=== PATIENT | female | born 1990 | race Caucasian/White ===

== ENCOUNTER 2016-07-28 21:19 | Emergency (ER) | payer BC ==
[2016-07-28 21:36] VITALS: BP 156/93
[2016-07-28] MEDS ORDERED: Cephalexin CAP* 500 MG PO ONE (22:43)
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
[2016-07-29 12:10] LABS: Hematocrit 41 % (35-47); Hemoglobin 13.2 g/dl (12.0-16.0); Mean Corpuscular HGB Conc 32 g/dl (31-36); Mean Corpuscular Hemoglobin 27 pg (27-31); Mean Corpuscular Volume 84 fL (80-97); Mean Platelet Volume 9 um3 (7.4-10.4); Red Blood Count 4.83 10^6/ul (4.0-5.4); Red Cell Distribution Width 14 % (10.5-15)
[2016-07-29 13:08] LABS: Erythrocyte Sed Rate 48 mm/Hr (0-14)
[2016-08-01 16:54] LABS: Lyme Disease IgG Ab WB Negative (Negative)
== END 2016-07-28 23:27 | disposition home or self-care (01) ==
LOC: UCEAST 21:19
DX: L03.113 Cellulitis of right upper limb (principal); Z88.0 Allergy status to penicillin; Z90.49 Acquired absence of other specified parts of digestive tract; Z87.891 Personal history of nicotine dependence
CPT/HCPCS: 36415; 85025; 85652; 86141; 86617; 99212; A9270-GY; G0463

== ENCOUNTER 2017-08-23 20:52 | Emergency (ER) | payer BC ==
--- OUTSIDE RECORDS SUMMARY | 2017-08-23 21:00 | XMS REPORT ---
:1990 External Reference #:[id number] Author Organization [facility] Address [address] [place] [address] Phone [phone] Care Team Providers Name Role Phone HCP given Primary Care Physician Unavailable Payers Type Date Identification Numbers Payment Provider Subscriber Commercial Effective: Policy Number: Dara Hanna 2015 [id number] Ind/Ppo/Hmo/Pos Group Number: PPO [employer] LOCAL ON [address] [address] PayID: [id number] [place] [address] Problems Date Description Provider Status Onset: 11/10/2010 Irritable bowel syndrome Deniz Mendez Active Onset: 11/17/2010 Generalized anxiety disorder Deniz Mendez Active Onset: 11/17/2010 Morbid obesity Deniz Mendez Active Onset: 05/19/2015 Neck pain Sony Bolton D.O. Active Onset: 05/19/2015 Myalgia Sony Bolton D.O. Active Onset: 06/20/2015 Cough Sony Bolton D.O. Active Onset: 06/20/2015 Oropharyngeal dysphagia Sony Bolton D.O. Active Onset: 06/20/2015 Chronic rhinitis Sony Bolton D.O. Active Onset: 06/20/2015 Gastroesophageal reflux disease Sony Bolton D.O. Active Onset: 06/20/2015 Anxiety state Sony Bolton D.O. Active Onset: 04/12/2016 Jaw pain Sony Bolton D.O. Active Onset: 04/12/2016 Plantar fascial fibromatosis Sony Bolton, D.O. 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[employer], promoted agency cashier Cigarette Use Former Cigarette Smoker 2 x 8 yrs, quit in 2008 Packs Daily Smoking Non Smoker Currently Active Patient is currently sexually active Contraceptive Methods BCP # Partners in a Lifetime 2 Allergies, Adverse Reactions, Alerts Date Description Reaction Status Severity Comments 10/18/2011 Amoxicillin active rash, difficulty breathing 10/28/2014 Penicillins active rash, difficulty breathing 03/01/2016 Famotidine active caused abd pain and nausea went back to omeprazole 08/29/2009 No Known Drug Allergy inactive Medications Medication Date Status Form Strength Qnty SIG Indications Ordering Provider Doxycycline 07/31 Hx Capsules 100mg 56cap 1 twice a R53.83 Sopstephanie Hyclate s day for 28 Sony, - days D.O. 08/28 Azelastine HCL 10/11 Active Solution 0.15% 30ml instill one J31.0 Sopstephanie, (Nasal) spray at Sony, night and D.O. every 12 hours as needed for nasal drainage Fluticasone 10/11 Active Suspension 50mcg/Act 16uni 2 sprays [facility]31.0 [facility] each Sony, nostril D.O. every day for nasal congestion. flaquito allergies. rinse mouth post Ra Omeprazole 12/[address] 20mg 180ta 2 by mouth K21.9 gina bs every day Sony, D.O. Tramadol HCL 11/30 Active Tablets 50mg 30tab 1-2 by R68.84 Sopchak, s mouth every Sony, 6 hours as D.O. needed for pain Cyclobenzaprine 11/30 Active Tablets 5mg 14tab 1 tab by R68.84 Hoang, HCL s mouth every Sony, night for D.O. jaw or muscle spasm. will make you drowsy Vitamin D3 05/02 Active Capsules 5000Unit 90cap 1 by mouth Hoang, Maximum Strength /2014 s every day Sony, D.O. Vitamin B-12 05/02 Active Tablets Sub 1000mcg 270ta 1 sl three Sopchak , /2014 bs times a day Sony, ok to D.O. change dose to 500mcg or 5000mcg based on availablili ty Magox 400 05/02 Active Tablets 400(241.3 180ta 1-2 tablets [facility]79.1 [facility] mg bs every night Sony, at bedtime D.O. adjust to stools as directed R68.84 Ventolin 05/27/2013 Active Aerosol 108(90Base) 1canister 2 puff J45.902 Hoang, HFA mcg/Act every Sony, 4-6, as D.O. needed Xanax 11/10/2010 Active Tablets 1mg 20tabs 1/2 -1 F41.1 Hoang, tab by Sony, mouth D.O. three times a day, as needed Methylpredn 06/25/2017 Hx Tablets 4mg 21tabs 6 tabs R53.83 Hoang isolone - on day , 07/01/2017 1; then D.O. 5 tabs day2; then 4 tabs day3; then 3 tabs day4; then 2 tabs day 5; then 1 tab day 6 Guaifenesin 01/10/2017 Hx Syrup 100-10mg/5ML 100units 5-10ml R05 Hoang ac - every 6 Sony, 01/20/2017 hours, D.O. as needed Benzonatate 01/10/2017 Hx Capsules 200mg 30caps 1 by R05 Hoang, - mouth Sony, 02/10/2017 three D.O. times a day as needed cough Azithromyci 11/29/2016 Hx Tablets 250mg 6tabs take 2 J03.90 Hoang n - tablets Sony, 12/04/2016 by mouth D.O. one time on the first day then take 1 tablet by mouth daily for 4 days Doxycycline 07/30/2016 Hx Capsules 100mg 56caps 1 twice M25.521 Hoang Hyclate - a day Sony, 08/27/2016 for 28 D.O. days Tamiflu 07/05/2016 Hx Capsules 75mg 10caps take 1 J11.1 Hoang, - capsule Sony, 07/10/2016 by mouth D.O. 2 times per day for 5 days for flu Guaifenesin 07/05/2016 Hx Syrup 100-10mg/5ML 100units 1-2 R05 Hoang, ac - teaspoon Sony, 07/15/2016 every 6 D.O. hours, as needed Cimetidine 03/01/2016 Hx Tablets 400mg 60tabs Take 1 K21.9 Hoang, - tablet Sony, 07/30/2016 by mouth D.O. 2 times per day as needed for heartbur n Famotidine 01/05/2016 Hx Tablets 40mg 1 po Unknown - twice 03/01/2016 daily Flonase 12/01/2015 Hx Suspensio 50mcg/Act 47.400ml 2 sprays J31.0 Hoang, Allergy - n twice a Sony, Relief 03/01/2016 day D.O. until better. Qnasl 06/21/2015 Hx Aerosol 80mcg/Act 17.4gm 2 sprays J31.0 Hoang, - each Sony, 06/21/2015 nostril D.O. once a day Triamcinolo 06/20/2015 Hx Aerosol 55mcg/Act 16.5units spray 2 J31.0 Hoang, ne - sprays Sony, Acetonide 06/21/2015 in each D.O. nostril twice daily Buspirone 06/20/2015 Hx Tablets 7.5mg 60tabs 1 cap by F41.Merlyn Bolton, HCL - mouth Sony, 06/20/2015 twice a D.O. day Omeprazole 06/20/2015 Hx Capsules 40mg 90caps 1 by K21.Merlyn Boltno, - DR mouth Sony, 12/05/2015 every D.O. day Bactroban 01/27/2015 Hx Ointment 2% 22gm apply to 894.0 Hoang, - infected Sony, 04/19/2015 areas D.O. twice daily after cleaning with soap and water for the next 2 weeks Naproxen 12/22/2014 Hx Tablets 500mg 60tabs 1 tab 784.92 Silcoff, - twice a Khadar, 04/19/2015 day with M.D. food Cyclobenzap 12/22/2014 Hx Tablets 5mg 60tabs 1-2 tabs 784.92 Silcoff, rine HCL - by mouth Khadar, 04/19/2015 at M.D. night. for TMJ pain Ibuprofen 09/13/2014 Hx Tablets 200mg otc as Unknown - directed 06/20/2015 , prn Norgestimat 08/16/2014 Hx Tablets 0.25-35mg-mc take 1 Silcoff, e-Eth - g tablet Khadar, Estradiol 08/16/2014 by mouth M.D. once daily Norgestimat 08/16/2014 Hx Tablets 0.25-35mg-mc take 1 Silcoff, e-Eth - g tablet Khadar, Estradiol 08/16/2014 by mouth M.D. once daily Norgestimat 08/16/2014 Hx Tablets 0.25-35mg-mc 3tabs take 1 Silcoff, e-Eth - g tablet Khadar, Estradiol 05/05/2015 by mouth M.D. once daily Norgestimat 03/23/2013 Hx Tablets 0.25-35mg-mc 84tabs take 1 Silcoff, e/Ethinyl - g tablet Antigo, Estradiol 08/16/2014 by mouth M.D. once daily Ventolin 05/22/2012 Hx Aerosol 108(90Base) 1canister 2 puff q 493.91 Silcoff, HFA - mcg/ac 4-6, prn Khadar, 05/27/2013 M.D. Ranitidine 04/24/2012 Hx Tablets 150mg 60tabs 1 po bid 530.81 Silcoff, HCL - Khadar, 01/15/2013 M.D. Omeprazole 02/27/2012 Hx Capsules 20mg 30caps 1 po qd Tequila, - DR Rubalcava, 04/23/2012 M.D. Plan B 11/15/2011 Hx Tablets 1.5mg 1tabs One V25.01 Silcoff, One-Step - tablet Khadar, 11/20/2011 as soon M.D. as possible within 72 hours Ortho-Cycle 11/15/2011 Hx Tablets 0.25-35mg-mc 3PKT 1 po qd V25.01 Silcoff, n (Generic - g Khadar, Landen) 08/16/2014 M.D. Azithromyci 10/18/2011 Hx Tablets 250mg 6tabs 2 tabs 462 Silcoff, n - day one, Khadar, 11/13/2011 one tab M.D. days 2-5 Zanaflex 05/31/2011 Hx Capsules 4mg 60caps 1 po tid 724.5 Silcoff, - Khadar, 10/17/2011 M.D. Librax 03/29/2011 Hx Capsules 2.5-5mg 60caps 1 @ hs 564.1 Silcoff, - Khadar, 04/25/2011 M.D. Senna-Lax 01/09/2011 Hx Tablets 8.6mg 40tabs 1-2 bid 564.00 Silcoff, - until Khadar, 04/25/2011 normal M.D. bowel movement , then stop Fleet Enema 01/09/2011 Hx Enema 7-19GM/118ML 1box Use as 564.00 Silcoff , Six Pack - directed Khadar, 04/25/2011 M.D. Tramadol 01/06/2011 Hx Tablets 50mg 60tabs 1-2 q6 789.09 Silcoff, HCL - hrs Khadar, 04/25/2011 M.D. Buspirone 11/17/2010 Hx Tablets 7.5mg 60tabs 1 tab po 300.02 Silcoff, HCL - bid Khadar, 04/25/2011 M.DEmeka Celebrex 11/17/2010 Hx Capsules 100mg 60caps 1 po bid 524.60 Silcoff, - Khadar, 01/08/2011 M.DEmeka Miralax 11/10/2010 Hx Packet [id number] 1containe 17 grams 564.1 Silcoff, - per day Khadar, 05/22/2012 M.D. Claritin 01/06/2010 Hx Capsules 10mg 30caps 1 po qd 477.0 Silcoff, - Khadar, 08/15/2010 M.DEmeka Baclofen 12/29/2009 Hx Tablets 10mg 40tabs take 1 723.9 Silcoff, - -2 Khadar, 08/16/2010 tablet M.D. by mouth three times a day Prevacid 08/29/2009 Hx Capsules 30mg 30caps 2 po qd [address], 01/05/2010 Sanna Citalopram 08/29/2009 Hx Tablets 20mg 90tabs 1 tab po 300.02 Silcoff, Hydrobromid - qam kendell Rubalcava 09/14/2010 Sanna Nasonex 08/29/2009 Hx Suspensio 50mcg/Act 1units 2 sprays 381.01 Tequila, - n to both Khadar, 09/12/2010 nostrils M.DEmeka once daily 477.0 Celexa 08/08/2009 - Hx Tablets 20mg 30tabs 1/2 po qd Jennifercoluci, 08/08/2009 Sanna Rubalcava Amoxicillin 08/08/2009 - Hx Tablets 500mg 20tabs 1 tab po 382. Silcoff, 08/29/2009 bid x 10d 9 Sanna Rubalcava Celexa 08/08/2009 - Hx Tablets 20mg 30tabs 1 po qd Tequila, 09/07/2009 Sanna Rubalcava Citalopram 06/17/2009 - Hx Tablets 20mg 30tabs 1 tab po 300. Tequila Hydrobromide 06/17/2009 qam 02 Sanna Rubalcava Azithromycin 06/17/2009 - Hx Tablets 250mg 6tabs 2 tabs day 461. Silcoff, 08/29/2009 one, one 0 Sanna Rubalcava tab days 2-5 Miralax 06/17/2009 - Hx Packet [id number] 30units 1 pkt per 564. Silcoluci, 08/07/2009 day 1 Sanna Rubalcava Sertraline HCL 06/17/2009 - Hx Tablets 50mg 30tabs 1 tab qam 300. Tequila, 07/04/2009 02 Sanna Rubalcava Pantoprazole - Hx Tablets DR 40mg 60tabs 1 po bid Tequila, Sodium 02/27/2012 for acid Sanna Rubalcava reflux Immunizations CPT Code Status Date Vaccine Lot # [id number] Given 01/19/2013 Gardasil HPV vaccine [id number] 11054 Given 04/24/2012 Flu, Split Virus 3Yrs [id number] Given 03/13/2012 Gardasil HPV vaccine [id number] Given 01/17/2012 Adacel or Boostrix, TDaP [id number] 69671 Given 01/17/2012 Gardasil HPV vaccine [id number] 57688 Given 04/10/2008 Td Immunization Vital Signs Date Vital Result Comment 07/31/2017 BP Systolic 122 mmHg BP Diastolic 80 mmHg Weight 312.00 lb with sneakers 06/25/2017 BP Systolic 120 mmHg BP Diastolic 80 mmHg Height 63 inches 5'3" Weight 305.00 lb BMI (Body Mass Index) 54.0 kg/m2 06/18/2017 BP Systolic 120 mmHg ra BP Diastolic 85 mmHg ra Weight 309.00 lb 04/11/2017 BP Systolic 122 mmHg BP Diastolic 80 mmHg Weight 306.00 lb w/shoes 02/28/2017 BP Systolic 132 mmHg right arm BP Diastolic 83 mmHg right arm 02/12/2017 BP Systolic 126 mmHg BP Diastolic 80 mmHg Weight 302.00 lb w/shoes 01/10/2017 BP Systolic 124 mmHg BP Diastolic 76 mmHg Body Temperature 98.2 F Weight 303.00 lb w/shoes 11/29/2016 BP Systolic 100 mmHg BP Diastolic 78 mmHg Weight 300.00 lb 10/11/2016 BP Systolic 120 mmHg BP Diastolic 70 mmHg Height 63 inches 5'3" with sneakers Weight 313.00 lb with sneakers BMI (Body Mass Index) 55.4 kg/m2 08/09/2016 BP Systolic 118 mmHg BP Diastolic 62 mmHg Weight 300.00 lb 07/30/2016 BP Systolic 118 mmHg BP Diastolic 64 mmHg Weight 304.00 lb 07/05/2016 BP Systolic 132 mmHg BP Diastolic 84 mmHg Body Temperature 98.5 F Weight 306.00 lb 05/24/2016 BP Systolic 112 mmHg BP Diastolic 86 mmHg Weight 319.00 lb 04/12/2016 BP Systolic 122 mmHg BP Diastolic 82 mmHg Height 62.75 inches 5'2.75" Weight 315.00 lb BMI (Body Mass Index) 56.2 kg/m2 03/21/2016 BP Systolic 130 mmHg BP Diastolic 82 mmHg Body Temperature 97.9 F Weight 317.00 lb w/shoes 03/01/2016 BP Systolic 138 mmHg BP Diastolic 80 mmHg Weight 319.00 lb 01/19/2016 BP Systolic 119 mmHg BP Diastolic 70 mmHg Heart Rate 58 /min Weight 317.00 lb 12/01/2015 BP Systolic 135 mmHg BP Diastolic 72 mmHg Heart Rate 62 /min Weight 323.00 lb w/shoes 10/17/2015 BP Systolic 132 mmHg BP Diastolic 85 mmHg Height 63 inches 5'3" Weight 321.00 lb with sandals BMI (Body Mass Index) 56.9 kg/m2 08/11/2015 BP Systolic 135 mmHg BP Diastolic 75 mmHg Heart Rate 58 /min Weight 321.00 lb 07/14/2015 BP Systolic 128 mmHg BP Diastolic 80 mmHg Weight 329.00 lb with sneakers 06/20/2015 BP Systolic 120 mmHg BP Diastolic 80 mmHg Weight 328.50 lb with shoes 06/14/2015 BP Systolic 120 mmHg BP Diastolic 72 mmHg Weight 335.00 lb with sneakers 05/19/2015 BP Systolic 130 mmHg BP Diastolic 75 mmHg Heart Rate 68 /min Weight 333.00 lb w/shoes 04/20/2015 BP Systolic 132 mmHg BP Diastolic 88 mmHg Body Temperature 98.4 F Height 63 inches 5'3" Weight 337.00 lb BMI (Body Mass Index) 59.7 kg/m2 01/27/2015 BP Systolic 132 mmHg BP Diastolic 82 mmHg Body Temperature 98.2 F Weight 344.00 lb 12/22/2014 BP Systolic 138 mmHg BP Diastolic 86 mmHg Height 98.3 inches 8'2.30" Weight 359.00 lb shoes on BMI (Body Mass Index) 26.1 kg/m2 10/28/2014 BP Systolic 120 mmHg BP Diastolic 78 mmHg Height 62.25 inches 5'2.25" Weight 364.00 lb BMI (Body Mass Index) 66.0 kg/m2 Last Menstrual Period [id number] 01/19/2013 BP Systolic 136 mmHg largest cuff BP Diastolic 80 mmHg largest cuff Height 62.50 inches 5'2.50" Weight 357.00 lb BMI (Body Mass Index) 64.2 kg/m2 06/20/2012 BP Systolic 118 mmHg BP Diastolic 86 mmHg Weight 340.00 lb Last Menstrual Period 0 05/22/2012 BP Systolic 139 mmHg BP Diastolic 65 mmHg Heart Rate 67 /min Weight 335.00 lb 04/24/2012 BP Systolic 122 mmHg BP Diastolic 74 mmHg Heart Rate 74 /min Weight 337.00 lb 01/17/2012 BP Systolic 124 mmHg thigh cuff BP Diastolic 78 mmHg thigh cuff Height 62.50 inches 5'2.50" Weight 315.00 lb BMI (Body Mass Index) 56.7 kg/m2 Last Menstrual Period [id number] 11/15/2011 BP Systolic 144 mmHg BP Diastolic 75 mmHg Heart Rate 69 /min 10/18/2011 BP Systolic 110 mmHg BP Diastolic 84 mmHg Body Temperature 98.0 F Weight 297.00 lb 05/31/2011 BP Systolic 118 mmHg BP Diastolic 76 mmHg Weight 295.00 lb 04/26/2011 BP Systolic 100 mmHg BP Diastolic 72 mmHg Heart Rate 70 /min Respiratory Rate 16 /min Weight 288.00 lb Last Menstrual Period 0 03/29/2011 BP Systolic 105 mmHg BP Diastolic 62 mmHg Heart Rate 65 /min Weight 287.00 lb Last Menstrual Period 0 01/19/2011 BP Systolic 130 mmHg BP Diastolic 73 mmHg Heart Rate 61 /min Weight 294.00 lb 01/09/2011 BP Systolic 100 mmHg BP Diastolic 70 mmHg Weight 293.00 lb Last Menstrual Period 0 01/06/2011 BP Systolic 111 mmHg BP Diastolic 73 mmHg Heart Rate 61 /min Body Temperature 98.2 F Weight 298.00 lb 12/28/2010 BP Systolic 110 mmHg thigh cuff BP Diastolic 68 mmHg thigh cuff Weight 300.00 lb Last Menstrual Period 0 11/17/2010 BP Systolic 116 mmHg BP Diastolic 78 mmHg Height 63 inches 5'3" Weight 309.00 lb BMI (Body Mass Index) 54.7 kg/m2 11/10/2010 Weight 314.00 lb Last Menstrual Period 0 01/06/2010 BP Systolic 130 mmHg BP Diastolic 80 mmHg 01/06/2010 BP Systolic 130 mmHg BP Diastolic 80 mmHg 12/29/2009 BP Systolic 116 mmHg BP Diastolic 70 mmHg Body Temperature 98.5 F Weight 310.00 lb Last Menstrual Period 0 08/29/2009 BP Systolic 135 mmHg BP Diastolic 78 mmHg Heart Rate 60 /min Weight 305.00 lb 08/08/2009 BP Systolic 104 mmHg BP Diastolic 78 mmHg Weight 302.00 lb 07/04/2009 BP Systolic 122 mmHg BP Diastolic 66 mmHg Weight 293.00 lb 06/17/2009 BP Systolic 126 mmHg BP Diastolic 72 mmHg Heart Rate 80 /min Height 62.25 inches 5'2.25" Weight 295.00 lb BMI (Body Mass Index) 53.5 kg/m2 Last Menstrual Period 0 Results Test Date Test Result H/L Range Note CBC Auto Diff 06/18/2017 White Blood Count 6.7 10^3/uL 3.5-10.8 Red Blood Count 4.44 10^6/uL 4.0-5.4 Hemoglobin 12.7 g/dL 12.0-16.0 Hematocrit 38 % 35-47 Mean Corpuscular Volume 85 fL 80-97 Mean Corpuscular Hemoglobin 29 pg 27-31 Mean Corpuscular HGB Conc 34 g/dL 31-36 Red Cell Distribution Width 13 % 10.5-15 Platelet Count 232 10^3/uL 150-450 Mean Platelet Volume 9 um3 7.4-10.4 Abs Neutrophils 4.6 10^3/uL 1.5-7.7 Abs Lymphocytes 1.4 10^3/uL 1.0-4.8 Abs Monocytes 0.6 10^3/uL 0-0.8 Abs Eosinophils 0.1 10^3/uL 0-0.6 Abs Basophils 0 10^3/uL 0-0.2 Abs Nucleated RBC 0 10^3/uL Granulocyte % 68.8 % 38-83 Lymphocyte % 20.9 % Low 25-47 Monocyte % 8.6 % 1-9 Eosinophil % 1.1 % 0-6 Basophil % 0.6 % 0-2 Nucleated Red Blood Cells % 0 Comp Metabolic Panel 06/18/2017 Sodium 137 mmol/L 133-145 Potassium 3.8 mmol/L 3.5-5.0 Chloride 103 mmol/L 101-111 Co2 Carbon Dioxide 29 mmol/L 22-32 Anion Gap 5 mmol/L 2-11 Glucose 97 mg/dL 70-100 Blood Urea Nitrogen 11 mg/dL 6-24 Creatinine 0.56 mg/dL 0.51-0.95 BUN/Creatinine Ratio 19.6 8-20 Calcium 8.5 mg/dL Low 8.6-10.3 Total Protein 6.4 g/dL 6.4-8.9 Albumin 3.5 g/dL 3.2-5.2 Globulin 2.9 g/dL 2-4 Albumin/Globulin Ratio 1.2 1-3 Total Bilirubin 0.40 mg/dL 0.2-1.0 Alkaline Phosphatase 73 U/L 34-104 Alt 8 U/L 7-52 Ast 9 U/L Low 13-39 Egfr Non- 128.9 >60 Egfr 165.8 >60 1 CMV Igg/Igm 06/18/2017 Cytomegalovirus IgG Antibody Negative Negative 2 Cytomegalovirus IgM Antibody Negative Negative Ashley Carreon Comprehensive 06/18/2017 Ebv Capsid Ag IgG Ab Negative Negative Ebv Capsid Ag IgM Ab Negative Negative Ashley-Carreon Nuclear Antigen Negative Negative Ashley-Carreon Virus Interp See Comment 3 Laboratory test finding 06/18/2017 Cortisol 8.13 g/dL 4 C Reactive Protein 16.74 mg/L High < 5.00 5 Connective Tissue Panel 06/18/2017 Anti-Nuclear Antibody 0.1 U 6 Cyclic Citrullinated Peptide <15.6 U 7 Interpretation See Comment 8 Laboratory test finding 06/18/2017 Erythrocyte Sed Rate 39 mm/Hr High 0- 14 B-Type Natriuretic Peptide BNP 67 pg/mL 9 Lyme Western Blot 06/18/2017 Lyme Disease IgG Ab WB Negative Negative Lyme Disease IgG Bands Present p93, p58, p41, kDa Lyme Disease IgM Ab WB Negative Negative Lyme Disease IgM Bands Present p41, kDa Lyme Disease Interpretation See Comment 10 Laboratory test finding 06/18/2017 Magnesium 1.8 mg/dL Low 1.9-2.7 Vitamin B12 755 pg/mL 180-914 11 Vitamin D Total 25(Oh) 38.3 ng/mL 20-50 Tick-Borne Panel PCR Blood 06/18/2017 Babesia microti PCR Negative Negative Babesia ducani Negative Negative Babesia divergens/Mo-1 Negative Negative 12 Anaplasma phagocytophilum Negative Negative Ehrlichia chaffeensis Negative Negative Ehrlichia ewingii/canis Negative Negative Ehrlichia muris-like Negative Negative 13 B. miyamotoi PCR, B Negative Negative 14 Laboratory test finding 06/18/2017 TSH (Thyroid Stim Horm) 3.10 mcIU/mL 0.34-5.60 Laboratory test finding 11/29/2016 Culture Throat negative Culture Throat Rapid Screen negative Ashley Carreon Comprehensive 11/29/2016 Ebv Capsid Ag IgG Ab Negative Negative Ebv Capsid Ag IgM Ab Negative Negative Ashley-Carreon Nuclear Antigen Negative Negative Ashley-Carreon Virus Interp See Comment 15 CBC Auto Diff 11/29/2016 White Blood Count 9.1 10^3/uL 3.5-10.8 Red Blood Count 4.66 10^6/uL 4.0-5.4 Hemoglobin 13.0 g/dL 12.0-16.0 Hematocrit 40 % 35-47 Mean Corpuscular Volume 85 fL 80-97 Mean Corpuscular Hemoglobin 28 pg 27-31 Mean Corpuscular HGB Conc 33 g/dL 31-36 Red Cell Distribution Width 14 % 10.5-15 Platelet Count 237 10^3/uL 150-450 Mean Platelet Volume 9 um3 7.4-10.4 Abs Neutrophils 6.6 10^3/uL 1.5-7.7 Abs Lymphocytes 1.6 10^3/uL 1.0-4.8 Abs Monocytes 0.9 10^3/uL High 0-0.8 Abs Eosinophils 0.1 10^3/uL 0-0.6 Abs Basophils 0.1 10^3/uL 0-0.2 Abs Nucleated RBC 0 10^3/uL Granulocyte % 72.1 % 38-83 Lymphocyte % 17.0 % Low 25-47 Monocyte % 9.4 % High 1-9 Eosinophil % 0.8 % 0-6 Basophil % 0.7 % 0-2 Nucleated Red Blood Cells % 0 Comp Metabolic Panel 11/29/2016 Sodium 138 mmol/L 133-145 Potassium 3.6 mmol/L 3.5-5.0 Chloride 104 mmol/L 101-111 Co2 Carbon Dioxide 27 mmol/L 22-32 Anion Gap 7 mmol/L 2-11 Glucose 85 mg/dL 70-100 Blood Urea Nitrogen 8 mg/dL 6-24 Creatinine 0.62 mg/dL 0.51-0.95 BUN/Creatinine Ratio 12.9 8-20 Calcium 8.7 mg/dL 8.6-10.3 Total Protein 6.8 g/dL 6.4-8.9 Albumin 3.7 g/dL 3.2-5.2 Globulin 3.1 g/dL 2-4 Albumin/Globulin Ratio 1.2 1-3 Total Bilirubin 0.50 mg/dL 0.2-1.0 Alkaline Phosphatase 79 U/L 34-104 Alt 12 U/L 7-52 Ast 11 U/L Low 13-39 Egfr Non- 114.6 >60 Egfr 147.4 >60 16 Laboratory test 07/28/2016 CRP High Sensitivity 22.41 mg/L 17, 18 finding CBC Auto Diff 07/28/2016 White Blood Count 10.0 10^3/uL 3.5-10.8 17 Red Blood Count 4.83 10^6/uL 4.0-5.4 17 Hemoglobin 13.2 g/dL 12.0-16.0 17 Hematocrit 41 % 35-47 17 Mean Corpuscular Volume 84 fL 80-97 17 Mean Corpuscular Hemoglobin 27 pg 27-31 17 Mean Corpuscular HGB Conc 32 g/dL 31-36 17 Red Cell Distribution Width 14 % 10.5-15 17 Platelet Count 257 10^3/uL 150-450 17 Mean Platelet Volume 9 um3 7.4-10.4 17 Abs Neutrophils 7.4 10^3/uL 1.5-7.7 17 Abs Lymphocytes 1.8 10^3/uL 1.0-4.8 17 Abs Monocytes 0.6 10^3/uL 0-0.8 17 Abs Eosinophils 0.1 10^3/uL 0-0.6 17 Abs Basophils 0 10^3/uL 0-0.2 17 Abs Nucleated RBC 0.01 10^3/uL 17 Granulocyte % 73.9 % 38-83 17 Lymphocyte % 18.4 % Low 25-47 17 Monocyte % 6.3 % 1-9 17 Eosinophil % 0.9 % 0-6 17 Basophil % 0.5 % 0-2 17 Nucleated Red Blood Cells % 0.1 17 Lyme Western Blot 07/28/2016 Lyme Disease IgG Ab WB Negative Negative 17 Lyme Disease IgG Bands Present p93, p58, p41, kDa 17 Lyme Disease IgM Ab WB Negative Negative 17 Lyme Disease IgM Bands Present p41, kDa 17 Lyme Disease Interpretation See Comment 17, 19 Laboratory test 07/28/2016 Erythrocyte Sed Rate 48 mm/Hr High 0-14 17, 20 finding Laboratory test 03/21/2016 Culture Throat SEE RESULT 21 finding BELOW CBC Auto Diff 03/21/2016 White Blood Count 10.4 10^3/uL 3.5-10.8 Red Blood Count 4.61 10^6/uL 4.0-5.4 Hemoglobin 13.0 g/dL 12.0-16.0 Hematocrit 40 % 35-47 Mean Corpuscular Volume 86 fL 80-97 Mean Corpuscular Hemoglobin 28 pg 27-31 Mean Corpuscular HGB Conc 33 g/dL 31-36 Red Cell Distribution Width 14 % 10.5-15 Platelet Count 278 10^3/uL 150-450 Mean Platelet Volume 9 um3 7.4-10.4 Abs Neutrophils 8.2 10^3/uL High 1.5-7.7 Abs Lymphocytes 1.4 10^3/uL 1.0-4.8 Abs Monocytes 0.6 10^3/uL 0-0.8 Abs Eosinophils 0.1 10^3/uL 0-0.6 Abs Basophils 0.1 10^3/uL 0-0.2 Abs Nucleated RBC 0.01 10^3/uL Granulocyte % 78.5 % 38-83 Lymphocyte % 13.8 % Low 25-47 Monocyte % 6.0 % 1-9 Eosinophil % 0.9 % 0-6 Basophil % 0.8 % 0-2 Nucleated Red Blood Cells % 0.1 Laboratory test finding 03/21/2016 Monospot Negative Negative CMV Igg/Igm 03/21/2016 Cytomegalovirus IgG Negative Negative 22 Antibody Cytomegalovirus IgM Antibody Negative Negative Laboratory test finding 03/21/2016 Culture Throat Rapid Screen negative Lyme Western Blot 06/14/2015 Lyme Disease IgG Ab WB Negative Negative Lyme Disease IgG Bands Present p93, p41, kDa Lyme Disease IgM Ab WB Negative Negative Lyme Disease IgM Bands Present No bands detecte <SEE NOTE> kDa 23 Lyme Disease Interpretation See Comment 24 Celiac Panel 04/20/2015 Tissue Transglutaminase IgA Ab <1.2 U/mL 25 Immunoglobulin A 238 mg/dL 61 - 356 Celiac Interpretation See Comment 26 CBC Auto Diff 04/20/2015 White Blood Count 9.7 10^3/uL 4.8-10.8 Red Blood Count 4.58 10^6/uL 4.0-5.4 Hemoglobin 13.0 g/dL 12.0-16.0 Hematocrit 40 % 35-47 Mean Corpuscular Volume 87 fL 80-97 Mean Corpuscular Hemoglobin 28 pg 27-31 Mean Corpuscular HGB Conc 33 g/dL 31-36 Red Cell Distribution Width 14 % 10.5-15 Platelet Count 289 10^3/uL 150-450 Mean Platelet Volume 9 um3 7.4-10.4 Abs Neutrophils 7.3 10^3/uL 1.5-7.7 Abs Lymphocytes 1.5 10^3/uL 1.0-4.8 Abs Monocytes 0.7 10^3/uL 0-0.8 Abs Eosinophils 0.1 10^3/uL 0-0.6 Abs Basophils 0.1 10^3/uL 0-0.2 Abs Nucleated RBC 0.01 10^3/uL Granulocyte % 75.2 % 38-83 Lymphocyte % 15.6 % Low 25-47 Monocyte % 7.7 % 1-9 Eosinophil % 0.9 % 0-6 Basophil % 0.6 % 0-2 Nucleated Red Blood Cells % 0.1 Laboratory test finding 04/20/2015 Vitamin D Total 25(Oh) 13.7 ng/mL Low 30-50 Vitamin B12 273 pg/mL 180-914 27 Magnesium 1.8 mg/dL Low 1.9-2.7 TSH (Thyroid Stim Horm) 2.87 ?IU/mL 0.34-5.60 Celiac Hla DQ1/DQ2 04/20/2015 Hla-Dqa1 SEE BELOW 28 Hla-DQB1 SEE BELOW 29 Celiac Gene Pairs Present? No Celiac Gene Interpretation See Comment 30 Comp Metabolic Panel 04/20/2015 Sodium 137 mmol/L 133-145 Potassium 3.8 mmol/L 3.5-5.0 Chloride 104 mmol/L 101-111 Co2 Carbon Dioxide 26 mmol/L 22-32 Anion Gap 7 mmol/L 2-11 Glucose 96 mg/dL 70-100 Blood Urea Nitrogen 10 mg/dL 6-24 Creatinine 0.65 mg/dL 0.51-0.95 BUN/Creatinine Ratio 15.4 8-20 Calcium 8.9 mg/dL 8.6-10.3 Total Protein 6.9 g/dL 6.4-8.9 Albumin 3.5 g/dL 3.2-5.2 Globulin 3.4 g/dL 2-4 Albumin/Globulin Ratio 1.0 1-3 Total Bilirubin 0.40 mg/dL 0.2-1.0 Alkaline Phosphatase 72 U/L 34-104 Alt 25 U/L 7-52 Ast 17 U/L 13-39 Egfr Non- 110.2 >60 Egfr 141.7 >60 31 Laboratory test finding 10/28/2014 Cytology SEE RESULT BELOW 32 Urine Culture And Sensitivities 05/01/2014 Urine Culture (SEE NOTE) 33 Urinalysis Profile 12/23/2013 Urine Color Straw Urine Appearance Clear Urine Specific [place] 1.009 Low 1.010-1.030 Urine pH 7.0 5-9 Urine Urobilinogen Negative Negative Urine Ketones Negative Negative Urine Protein Negative Negative Urine Leukocytes Negative Negative Urine Blood Negative Negative Urine Nitrite Negative Negative Urine Bilirubin Negative Negative Urine Glucose Negative Negative CBC Auto Diff 12/23/2013 White Blood Count 11.4 10^3/uL High 4.8-10.8 Red Blood Count 4.39 10^6/uL 4.0-5.4 Hemoglobin 12.3 g/dL 12.0-16.0 Hematocrit 37 % 35-47 Mean Corpuscular Volume 84 fL 80-97 Mean Corpuscular Hemoglobin 28 pg 27-31 Mean Corpuscular HGB Conc 34 g/dL 31-36 Red Cell Distribution Width 14 % 10.5-15 Platelet Count 302 10^3/uL 150-450 Mean Platelet Volume 8 um3 7.4-10.4 Abs Neutrophils 8.2 10^3/uL High 1.5-7.7 Abs Lymphocytes 2.3 10^3/uL 1.0-4.8 Abs Monocytes 0.7 10^3/uL 0-0.8 Abs Eosinophils 0.1 10^3/uL 0-0.6 Abs Basophils 0.1 10^3/uL 0-0.2 Abs Nucleated RBC 0.01 10^3/uL Granulocyte % 71.9 % 38-83 Lymphocyte % 19.8 % Low 25-47 Monocyte % 6.2 % 1-9 Eosinophil % 1.2 % 0-6 Basophil % 0.9 % 0-2 Nucleated Red Blood Cells % 0 Laboratory test finding 12/23/2013 Lactic Acid 0.9 mmol/L 0.5-2.2 Comp Metabolic Panel 12/23/2013 Sodium 137 mmol/L 133-145 Potassium 3.7 mmol/L 3.7-5.6 Chloride 106 mmol/L 101-111 Co2 Carbon Dioxide 24 mmol/L 22-32 Anion Gap 7 mmol/L 2-11 Glucose 99 mg/dL 70-100 Blood Urea Nitrogen 8 mg/dL 6-24 Creatinine 0.57 mg/dL 0.51-0.95 BUN/Creatinine Ratio 14.0 8-20 Calcium 8.8 mg/dL 8.6-10.3 Total Protein 7.2 g/dL 6.4-8.9 Albumin 3.6 g/dL 3.2-5.2 Globulin 3.6 g/dL 2-4 Albumin/Globulin Ratio 1.0 1-3 Total Bilirubin 0.40 mg/dL 0.2-1.0 Alkaline Phosphatase 77 U/L 34-104 Alt 17 U/L 7-52 Ast 13 U/L 13-39 Egfr Non- 129.2 >60 Egfr 166.2 >60 34 Laboratory test finding 12/23/2013 Magnesium 2.0 mg/dL 1.9-2.7 Lipase 6 U/L Low 11.0-82.0 C Reactive Protein 37.18 mg/L High < 5.00 35 Serum Negative Negative 36 Throat-Beta Strept 06/08/2013 Throat Beta Strep Culture (SEE NOTE) 37 Ua Inhouse 01/19/2013 Ua Glucose - Ua Bilirubin - Ua Ketones - Ua Specific [place] 1.025 Ua Blood - Ua PH 5.0 Ua Protein - Ua Urobilinogen - Ua Nitrite - Ua Leukocytes - Laboratory test 05/22/2012 Hemoglobin 11.6 finding Laboratory test 04/24/2012 TSH (Thyroid 3.30 MIU/ML 0.34-5.60 finding Stimulating Horm) Laboratory test 04/24/2012 Occult Blood - Stool neg x3 finding Laboratory test 04/17/2012 Troponin I 0 ng/mL 0-0.06 38 finding CBC Auto Diff 04/17/2012 White Blood Count 11.3 10^3/uL High 4.8-10.8 Red Blood Count 4.10 10^6/uL 4.0-5.4 Hemoglobin 11.2 g/dL Low 12.0-16.0 Hematocrit 34 % Low 35-47 Mean Corpuscular Volume 83 fL 80-97 Mean Corpuscular Hemoglobin 27 pg 27-31 Mean Corpuscular HGB Conc 33 g/dL 31-36 Red Cell Distribution Width 14 % 10.5-15 Platelet Count 255 10^3/uL 150-450 Mean Platelet Volume 8 um3 7.4-10.4 Abs Neutrophils 8.1 10^3/uL High 1.5-7.7 Abs Lymphocytes 2.1 10^3/uL 1.0-4.8 Abs Monocytes 0.9 10^3/uL High 0-0.8 Abs Eosinophils 0.1 10^3/uL 0-0.6 Abs Basophils 0.1 10^3/uL 0-0.2 Abs Nucleated RBC 0 10^3/uL Granulocyte % 71.8 % 38-83 Lymphocyte % 18.2 % Low 25-47 Monocyte % 8.1 % 1-9 Eosinophil % 1.1 % 0-6 Basophil % 0.8 % 0-2 Nucleated Red Blood Cells % 0 Laboratory test finding 04/17/2012 Inr 0.84 0.82-1.17 39 Activated Partial Thrombo Time 24.8 Sec 22.18-37.18 40 Comp Metabolic Panel 04/17/2012 Sodium 134 mmol/L 133-145 Potassium 3.4 mmol/L Low 3.5-5.0 Chloride 106 mmol/L 101-111 Co2 Carbon Dioxide 25.0 mmol/L 22-32 Anion Gap 3.0 mmol/L 2-11 Glucose 117 mg/dL High 70-100 Blood Urea Nitrogen 8 mg/dL 6-24 Creatinine 0.50 mg/dL 0.50-1.40 BUN/Creatinine Ratio 16.0 8-20 Calcium 8.2 mg/dL 8.1-9.9 Total Protein 6.4 GM/DL 6.2-8.1 Albumin 2.9 GM/DL Low 3.6-5.4 Globulin 3.5 GM/DL 2-4 Albumin/Globulin Ratio 0.8 Low 1-3 Total Bilirubin 0.3 mg/dL 0.1-1.0 41 Alkaline Phosphatase 70 U/L 30-110 Alt 26 U/L 14-54 Ast 19 U/L 12-42 Egfr Non- 152.9 >60 Egfr 196.6 >60 42 Laboratory test finding 04/17/2012 Lipase 21 U/L Low 22-51 Creatine Kinase 79 U/L 0-200 CKMB 04/17/2012 CKMB In NG/ML 0.9 NG/ML 0.3-4.0 CKMB % 1.0 % 0-9 43 Laboratory test finding 04/17/2012 Troponin I 0 ng/mL 0-0.06 44 C Reactive Protein 3.1 mg/dL High Less Than 0.5 Free T4 0.77 NG/ML 0.61-1.24 TSH (Thyroid Stimulating Horm) 6.10 MIU/ML High 0.34-5.60 Laboratory test 01/17/2012 Cytology <SEE 45 finding NOTE> Laboratory test 10/18/2011 Culture Throat neg finding Rapid Screen Culture Throat neg Laboratory test finding 09/27/2011 Ictotest NEGATIVE 46 Urinalysis W/Microscopic 09/27/2011 Ua Color TRISTA Yellow Appearance-Urine CLEAR Clear Specific [place]-Ur 1.026 1.010-1.030 Esterase-Urine NEGATIVE Negative Nitrite NEGATIVE Negative Isadbnqytcmo-Gi-GEC NEGATIVE Negative Protein-Urine TRACE Negative PH-Urine 5.5 5-9 Blood-Urine 3+ Negative Ketones-Urine TRACE Negative Bilirubin-Ur SEE ICTOTEST Negative Glucose-Urine NEGATIVE Negative WBC-Urine 3-5 0-5 RBC-Urine 5-10 0-2 Mucus Urine SMALL None Epith Cells-Ur FEW None Bacteria-Urine TRACE None Laboratory test finding 09/27/2011 Lipase 20 U/L Low 22-51 Comp Metabolic Panel 09/27/2011 Sodium 139 mmol/L 135-145 Potassium 3.4 mmol/L Low 3.5-5.0 Chloride 105 mmol/L 101-111 Co2 (Carbon Dioxide) 29.0 mmol/L 22-32 Anion Gap 5.0 mmol/L 2-11 47 Glucose 88 mg/dL 70-100 BUN 8 mg/dL 6-24 Creatinine 0.6 mg/dL 0.50-1.40 One Over Creatinine 1.66 BUN/Creatinine Ratio 13.3 8-20 Calcium 8.8 mg/dL 8.1-9.9 Total Protein 6.8 GM/DL 6.2-8.1 Albumin 3.7 GM/DL 3.6-5.4 Globulin 3.1 GM/DL 2-4 Albumin/Globulin Ratio 1.2 1-3 Bilirubin Total 0.7 mg/dL 0.4-1.5 48 Alkaline Phosphatase 88 U/L 30-110 Alt (SGPT) 18 U/L 14-54 Ast (Sgot) 16 U/L 12-42 eGFR Non- 123.9 > 60 eGFR 159.3 > 60 49 Manual Differential 09/27/2011 Polysegmented Neutrophil 76 % 38-83 Lymphocyte 23 % Low 25-47 Monocyte 1 % 0-13 Absolute Neutrophil Count 7.40 Anisocytosis SLIGHT CBC Auto Diff 09/27/2011 White Blood Count 9.8 CUMM 4.8-10.8 Red Cell Count 4.30 CUMM 4.2-5.4 Hemoglobin 13.1 g/dL 12.0-16.0 Hematocrit 38 % 35-47 Mean Corpuscular Volume 88 um3 79-97 Mean Corpuscular Hemoglob 30 pg 27-31 Mean Corpuscular HGB Cone 35 g/dL 32-36 Redcell Distribution WDTH 13 % 10.5-15 Platelet Count 258 CUMM 150-450 Mean Platelet Volume 8.5 um3 7.4-10.4 50 CBC Auto Diff 09/08/2011 White Blood Count 7.3 CUMM 4.8-10.8 Red Cell Count 4.30 CUMM 4.2-5.4 Hemoglobin 13.3 g/dL 12.0-16.0 Hematocrit 38 % 35-47 Mean Corpuscular Volume 88 um3 79-97 Mean Corpuscular Hemoglob 31 pg 27-31 Mean Corpuscular HGB Cone 35 g/dL 32-36 Redcell Distribution WDTH 13 % 10.5-15 Platelet Count 243 CUMM 150-450 Mean Platelet Volume 8.4 um3 7.4-10.4 Gran % 82.8 % 38-83 Lymph % 9.2 % Low 25-47 Mononuclear % 7.4 % 1-9 Eosinophil % 0.3 % 0-6 Basophil % 0.3 % 0-2 Abs Lymphs 0.7 Low 1.0-4.8 Abs Mononuclear 0.5 0-0.8 Absolute Neutrophil Count 6.0 1.5-7.7 Abs Eosinophils 0 0-0.6 Abs Basophils 0 0-0.2 51 Laboratory test finding 09/08/2011 (HCG) Serum NEGATIVE Negative 52 Urinalysis 09/08/2011 Ua Color YELLOW Yellow Appearance-Urine CLEAR Clear Specific [place]-Ur 1.010 1.010-1.030 Esterase-Urine NEGATIVE Negative Nitrite NEGATIVE Negative Bmrzivqagmyv-Xd-KVP NEGATIVE Negative Protein-Urine NEGATIVE Negative PH-Urine 8.0 5-9 Blood-Urine NEGATIVE Negative Ketones-Urine NEGATIVE Negative Bilirubin-Ur NEGATIVE Negative Glucose-Urine NEGATIVE Negative Comp Metabolic Panel 09/08/2011 Sodium 138 mmol/L 135-145 Potassium 3.8 mmol/L 3.5-5.0 Chloride 105 mmol/L 101-111 Co2 (Carbon Dioxide) 29.0 mmol/L 22-32 Anion Gap 4.0 mmol/L 2-11 53 Glucose 113 mg/dL High 70-100 BUN 10 mg/dL 6-24 Creatinine 0.6 mg/dL 0.50-1.40 One Over Creatinine 1.66 BUN/Creatinine Ratio 16.7 8-20 Calcium 8.7 mg/dL 8.1-9.9 Total Protein 7.1 GM/DL 6.2-8.1 Albumin 3.4 GM/DL Low 3.6-5.4 Globulin 3.7 GM/DL 2-4 Albumin/Globulin Ratio 0.9 Low 1-3 Bilirubin Total 2.1 mg/dL High 0.4-1.5 54 Alkaline Phosphatase 130 U/L High 30-110 Alt (SGPT) 198 U/L High 14-54 Ast (Sgot) 290 U/L High 12-42 eGFR Non- 123.9 > 60 eGFR 159.3 > 60 55 Laboratory test finding 09/08/2011 Lipase 1152 U/L High 22-51 56 C Reactive Protein 1.0 mg/dL High Less Than 0.5 Xray 03/29/2011 X-Ray, Thoracic Spine, 3 unremarkable Views, Ap&Lat Incl Cervicothoracic Laboratory test 02/08/2011 Clotest NEGATIVE finding Laboratory test 01/19/2011 Cytology 57 finding <SEE NOTE> Ua Inhouse 01/19/2011 Ua Glucose - Ua Bilirubin + Ua Ketones mod Ua Specific [place] 1.020 Ua Blood 3+ Ua PH 6.0 Ua Protein tr Ua Urobilinogen - Ua Nitrite - Ua Leukocytes - Manual Differential 01/06/2011 Polysegmented Neutrophil 79 % 38-83 58 Lymphocyte 13 % Low 25-47 58 Monocyte 7 % 0-13 58 Basophil 1 % 0-2 58 Absolute Neutrophil Count 8.2 58 Anisocytosis SLIGHT 58 Platelet Evaluation LARGE 58 Laboratory test finding 01/06/2011 Erythrocyte Sed Rate 60 MM/HR High 0- 15 58 CBC Auto Diff 01/06/2011 White Blood Count 10.4 CUMM 4.8-10.8 58 Red Cell Count 4.41 CUMM 4.2-5.4 58 Hemoglobin 13.1 g/dL 12.0-16.0 58 Hematocrit 39 % 35-47 58 Mean Corpuscular Volume 88 um3 79-97 58 Mean Corpuscular Hemoglob 30 pg 27-31 58 Mean Corpuscular HGB Cone 34 g/dL 32-36 58 Redcell Distribution WDTH 13 % 10.5-15 58 Platelet Count 252 CUMM 150-450 58 Mean Platelet Volume 10.0 um3 7.4-10.4 58, 59 CBC Auto Diff 01/03/2011 White Blood Count 11.3 CUMM High 4.8-10.8 60 Red Cell Count 4.42 CUMM 4.2-5.4 60 Hemoglobin 13.4 g/dL 12.0-16.0 60 Hematocrit 39 % 35-47 60 Mean Corpuscular Volume 87 um3 79-97 60 Mean Corpuscular Hemoglob 30 pg 27-31 60 Mean Corpuscular HGB Cone 35 g/dL 32-36 60 Redcell Distribution WDTH 13 % 10.5-15 60 Platelet Count 264 CUMM 150-450 60 Mean Platelet Volume 8.8 um3 7.4-10.4 60 Gran % 79.5 % 38-83 60 Lymph % 12.4 % Low 25-47 60 Mononuclear % 7.1 % 1-9 60 Eosinophil % 0.4 % 0-6 60 Basophil % 0.6 % 0-2 60 Abs Lymphs 1.4 1.0-4.8 60 Abs Mononuclear 0.8 0-0.8 60 Absolute Neutrophil Count 9.0 High 1.5-7.7 60 Abs Eosinophils 0 0-0.6 60 Abs Basophils 0.1 0-0.2 60, 61 Comp Metabolic Panel 01/03/2011 Sodium 139 mmol/L 135-145 60 Potassium 3.5 mmol/L 3.5-5.0 60 Chloride 105 mmol/L 101-111 60 Co2 (Carbon Dioxide) 28.0 mmol/L 22-32 60 Anion Gap 6.0 mmol/L 2-11 60, 62 Glucose 98 mg/dL 70-100 60 BUN 6 mg/dL 6-24 60 Creatinine 0.70 mg/dL 0.50-1.40 60 One Over Creatinine 1.40 60 BUN/Creatinine Ratio 8.6 8-20 60 Calcium 9.2 mg/dL 8.1-9.9 60 Total Protein 7.7 GM/DL 6.2-8.1 60 Albumin 3.8 GM/DL 3.6-5.4 60 Globulin 3.9 GM/DL 2-4 60 Albumin/Globulin Ratio 1.0 1-3 60 Bilirubin Total 0.7 mg/dL 0.4-1.5 60, 63 Alkaline Phosphatase 86 U/L 30-110 60 Alt (SGPT) 27 U/L 14-54 60 Ast (Sgot) 23 U/L 12-42 60 eGFR Non- 104.6 > 60 60 eGFR 134.6 > 60 60, 64 Laboratory test finding 01/03/2011 Amylase 22 U/L 20-120 60, 65 Lipase 24 U/L 22-51 60 Urinalysis 01/03/2011 Ua Color TRISTA Yellow 60 Appearance-Urine CLEAR Clear 60 Specific [place]-Ur 1.029 1.010-1.030 60 Esterase-Urine NEGATIVE Negative 60 Nitrite NEGATIVE Negative 60 Udgslaidhrae-Ex-XAS NEGATIVE Negative 60 Protein-Urine NEGATIVE Negative 60 PH-Urine 6.0 5-9 60 Blood-Urine NEGATIVE Negative 60 Ketones-Urine 1+ Negative 60 Bilirubin-Ur SEE ICTOTEST Negative 60 Glucose-Urine NEGATIVE Negative 60 Laboratory test finding 01/03/2011 Ictotest NEGATIVE 60, 66 Laboratory test finding 01/03/2011 TSH 1.77 MIU/ML 0.34-5.60 Comp Metabolic Panel 01/03/2011 Sodium 139 mmol/L 135-145 Potassium 3.5 mmol/L 3.5-5.0 Chloride 105 mmol/L 101-111 Co2 (Carbon Dioxide) 28.0 mmol/L 22-32 Anion Gap 6.0 mmol/L 2-11 67 Glucose 98 mg/dL 70-100 BUN 6 mg/dL 6-24 Creatinine 0.70 mg/dL 0.50-1.40 One Over Creatinine 1.40 BUN/Creatinine Ratio 8.6 8-20 Calcium 9.2 mg/dL 8.1-9.9 Total Protein 7.7 GM/DL 6.2-8.1 Albumin 3.8 GM/DL 3.6-5.4 Globulin 3.9 GM/DL 2-4 Albumin/Globulin Ratio 1.0 1-3 Bilirubin Total 0.7 mg/dL 0.4-1.5 68 Alkaline Phosphatase 86 U/L 30-110 Alt (SGPT) 27 U/L 14-54 Ast (Sgot) 23 U/L 12-42 eGFR Non- 104.6 > 60 eGFR 134.6 > 60 69 Laboratory test finding 01/03/2011 Amylase 22 U/L 20-120 70 Lipase 24 U/L 22-51 Laboratory test finding 12/28/2010 Hemoglobin A1c 5.5 Urine Micro Inhouse 12/28/2010 Ua WBC - Ua RBC - Ua Casts - Ua Epi many Ua Other - Ua Glucose - Ua Bilirubin sm Ua Ketones - Ua Specific [place] 1.025 Ua Blood - Ua PH 6.0 Ua Protein - Ua Urobilinogen - Ua Nitrite - Ua Leukocytes - CBC Auto Diff 12/28/2010 White Blood Count 10.4 CUMM 4.8-10.8 Red Cell Count 4.28 CUMM 4.2-5.4 Hemoglobin 12.5 g/dL 12.0-16.0 Hematocrit 38 % 35-47 Mean Corpuscular Volume 89 um3 79-97 Mean Corpuscular Hemoglob 29 pg 27-31 Mean Corpuscular HGB Cone 33 g/dL 32-36 Redcell Distribution WDTH 13 % 10.5-15 Platelet Count 263 CUMM 150-450 Mean Platelet Volume 9.8 um3 7.4-10.4 Gran % 77.8 % 38-83 Lymph % 13.9 % Low 25-47 Mononuclear % 7.1 % 1-9 Eosinophil % 0.7 % 0-6 Basophil % 0.5 % 0-2 Abs Lymphs 1.4 1.0-4.8 Abs Mononuclear 0.7 0-0.8 Absolute Neutrophil Count 8.1 High 1.5-7.7 Abs Eosinophils 0.1 0-0.6 Abs Basophils 0 0-0.2 71 Laboratory test finding 12/28/2010 Monospot NEGATIVE Negative Comp Metabolic Panel 12/28/2010 Sodium 139 mmol/L 135-145 Potassium 3.8 mmol/L 3.5-5.0 Chloride 107 mmol/L 101-111 Co2 (Carbon Dioxide) 28.0 mmol/L 22-32 Anion Gap 4.0 mmol/L 2-11 72 Glucose 102 mg/dL High 70-100 BUN 7 mg/dL 6-24 Creatinine 0.60 mg/dL 0.50-1.40 One Over Creatinine 1.60 BUN/Creatinine Ratio 11.7 8-20 Calcium 8.8 mg/dL 8.1-9.9 Total Protein 6.4 GM/DL 6.2-8.1 Albumin 3.6 GM/DL 3.6-5.4 Globulin 2.8 GM/DL 2-4 Albumin/Globulin Ratio 1.3 1-3 Bilirubin Total 0.5 mg/dL 0.4-1.5 73 Alkaline Phosphatase 73 U/L 30-110 Alt (SGPT) 16 U/L 14-54 Ast (Sgot) 16 U/L 12-42 eGFR Non- 125.0 > 60 eGFR 160.8 > 60 74 Laboratory test finding 12/28/2010 Lyme Disease Serology Negative Negative 75 Urinalysis 12/12/2010 Ua Color YELLOW Yellow Appearance-Urine CLOUDY Clear Specific [place]-Ur 1.024 1.010-1.030 Esterase-Urine NEGATIVE Negative Nitrite NEGATIVE Negative Pyruuwfhkqsk-Vz-OJW NEGATIVE Negative Protein-Urine NEGATIVE Negative PH-Urine 7.5 5-9 Blood-Urine NEGATIVE Negative Ketones-Urine NEGATIVE Negative Bilirubin-Ur NEGATIVE Negative Glucose-Urine NEGATIVE Negative CBC No Diff 12/12/2010 White Blood Count 10.2 CUMM 4.8-10.8 Red Cell Count 4.24 CUMM 4.2-5.4 Hemoglobin 12.5 g/dL 12.0-16.0 Hematocrit 38 % 35-47 Mean Corpuscular Volume 89 um3 79-97 Mean Corpuscular Hemoglob 30 pg 27-31 Mean Corpuscular HGB Cone 33 g/dL 32-36 Redcell Distribution WDTH 13 % 10.5-15 Platelet Count 274 CUMM 150-450 Mean Platelet Volume 8.8 um3 7.4-10.4 Laboratory test finding 05/31/2010 Monospot NEGATIVE Negative Ashley Carreon Comprehensive 05/31/2010 Ebv Vca Igg Negative Negative Ebv Vca Igm Negative Negative Ebna Negative Negative Ebv Interpretation . () 76 Laboratory test finding 12/29/2009 Culture Throat Rapid Screen neg Culture Throat neg CBC With Manual Diff 11/22/2009 White Blood Count 15.6 CUMM High 4.8-10.8 Red Cell Count 4.46 CUMM 4.2-5.4 Hemoglobin 13.4 g/dL 12.0-16.0 Hematocrit 39 % 35-47 Mean Corpuscular Volume 88 um3 79-97 Mean Corpuscular Hemoglob 30 pg 27-31 Mean Corpuscular HGB Cone 34 g/dL 32-36 Redcell Distribution WDTH 13 % 10.5-15 Platelet Count 266 CUMM 150-450 Mean Platelet Volume 9.2 um3 7.4-10.4 Polysegmented Neutrophil 72 % 38-83 Band Neutrophil 1 % 0-8 Lymphocyte 16 % Low 25-47 Monocyte 9 % 0-13 Eosinophil 1 % 0-6 Atypical Lymph 1 % 0-6 Absolute Neutrophil Count 11.3 Anisocytosis SLIGHT Laboratory test finding 11/22/2009 Monospot NEGATIVE Negative Ashley Carreon Comprehensive 11/22/2009 Ebv Vca Igg Negative Negative Ebv Vca Igm Negative Negative Ebna Negative Negative Ebv Interpretation . () 77 CBC With Electronic Diff 07/04/2009 White Blood Count 10.3 CUMM 4.8-10.8 Red Cell Count 4.89 CUMM 4.2-5.4 Hemoglobin 14.2 g/dL 12.0-16.0 Hematocrit 42 % 35-47 Mean Corpuscular Volume 87 um3 79-97 Mean Corpuscular Hemoglob 29 pg 27-31 Mean Corpuscular HGB Cone 34 g/dL 32-36 Redcell Distribution WDTH 14 % 10.5-15 Platelet Count 271 CUMM 150-450 Mean Platelet Volume 9.1 um3 7.4-10.4 Gran % 74.0 % 38-83 Lymph % 17.3 % Low 25-47 Mononuclear % 7.5 % 1-9 Eosinophil % 0.9 % 0-6 Basophil % 0.3 % 0-2 Abs Lymphs 1.8 1.0-4.8 Abs Mononuclear 0.8 0-0.8 Absolute Neutrophil Count 7.6 1.5-7.7 Abs Eosinophils 0.1 0-0.6 Abs Basophils 0 0-0.2 78 1 Because ethnic data is not always readily available, this report includes an eGFR for both -Americans and non- Americans. The National Kidney Disease Education Program (NKDEP) does not endorse the use of the MDRD equation for patients that are not between the ages of 18 and 70, are , have extremes of body size, muscle mass, or nutritional status, or are non- or non-. According to the National Kidney Foundation, irrespective of diagnosis, the stage of the disease is based on the level of kidney function: Stage Description GFR(mL/min/1.73 m(2)) 1 Kidney damage with normal or decreased GFR 90 2 Kidney damage with mild decrease in GFR 60-89 3 Moderate decrease in GFR 30-59 4 Severe decrease in GFR 15-29 5 Kidney failure <15 (or dialysis) 2 Test Performed by: [facility] - [facility] [address] [place] [address] 3 Results suggest no prior exposure to Ashley-Carreon Virus. However, a second serum specimen should be tested in 10-14 days if clinically indicated. ADDITIONAL INFORMATION In most populations, at least 90% of the adult population will have been infected with EBV sometime in the past and therefore, will be positive for anti-VCA/IgG and anti- EBNA. Antibodies to EBNA develop 6-8 weeks after primary infection and remain present for life. Presence of VCA/ IgM antibodies indicates recent primary infection with EBV. Test Performed by: [facility] - [facility] [address] [place] [address] 4 AM 8.7-22.4 PM <10 5 Acute inflammation: >10.00 6 REFERENCE VALUE <=1.0 (Negative) 7 REFERENCE VALUE <20.0 (Negative) 8 Tests for antibodies to dsDNA and HARLEEN antigens are not performed automatically unless the BELEM result is > or= 3.0 U. Studies performed at [facility] indicate that positive BELEM results <3.0 U are rarely accompanied by positive second order tests. Test Performed by: [facility] - [address] [address] 9 >100 to <200 pg/mL: likely compensated congestive heart failure (CHF) 200 to 400 pg/mL: likely moderate CHF >400 pg/mL: likely moderate to severe CHF 10 Specific serologic response to B. burgdorferi infection is not detected, but cannot rule out early infection during which low or undetectable antibody levels to B. burgdorferi may be present. If clinically indicated, a new serum specimen should be submitted in 7-14 days. ADDITIONAL INFORMATION CDC criteria require >=5 bands for IgG or >=2 bands for IgM for the Immunoblot to be considered positive. Bands (e.g.,p41) may be detected in patients without Lyme disease, and patterns not meeting the CDC criteria should be interpreted with caution. Immunoblot should be ordered only on specimens that are positive or equivocal by a FDA-licensed Lyme disease antibody screening test (e.g., EIA). Test Performed by: [facility] - [facility] [address] [place] [address] 11 Normal Range 180 to 914 Indeterminate Range 145 to 180 Deficient Range <145 12 ADDITIONAL INFORMATION This test was developed and its performance characteristics determined by [facility] in a manner consistent with CLIA requirements. This test has not been cleared or approved by the U.S. Food and Drug Administration. 13 ADDITIONAL INFORMATION This test was developed and its performance characteristics determined by [facility] in a manner consistent with CLIA requirements. This test has not been cleared or approved by the U.S. Food and Drug Administration. 14 ADDITIONAL INFORMATION This test was developed and its performance characteristics determined by [facility] in a manner consistent with CLIA requirements. This test has not been cleared or approved by the U.S. Food and Drug Administration. Test Performed by: [facility] - [address] [address] 15 Results suggest no prior exposure to Ashley-Carreon Virus. However, a second serum specimen should be tested in 10-14 days if clinically indicated. ADDITIONAL INFORMATION In most populations, at least 90% of the adult population will have been infected with EBV sometime in the past and therefore, will be positive for anti-VCA/IgG and anti- EBNA. Antibodies to EBNA develop 6-8 weeks after primary infection and remain present for life. Presence of VCA/ IgM antibodies indicates recent primary infection with EBV. Test Performed by: [facility] - [address] [address] 16 Because ethnic data is not always readily available, this report includes an eGFR for both -Americans and non- Americans. The National Kidney Disease Education Program (NKDEP) does not endorse the use of the MDRD equation for patients that are not between the ages of 18 and 70, are , have extremes of body size, muscle mass, or nutritional status, or are non- or non-. According to the National Kidney Foundation, irrespective of diagnosis, the stage of the disease is based on the level of kidney function: Stage Description GFR(mL/min/1.73 m(2)) 1 Kidney damage with normal or decreased GFR 90 2 Kidney damage with mild decrease in GFR 60-89 3 Moderate decrease in GFR 30-59 4 Severe decrease in GFR 15-29 5 Kidney failure <15 (or dialysis) 17 [id number] Low risk: <1.00 Average risk: 1.00-3.00 High risk: >3.00 19 Specific serologic response to B. burgdorferi infection is not detected, but cannot rule out early infection during which low or undetectable antibody levels to B. burgdorferi may be present. If clinically indicated, a new serum specimen should be submitted in 7-14 days. ADDITIONAL INFORMATION CDC criteria require >=5 bands for IgG or >=2 bands for IgM for the Immunoblot to be considered positive. Bands (e.g.,p41) may be detected in patients without Lyme disease, and patterns not meeting the CDC criteria should be interpreted with caution. Immunoblot should be ordered only on specimens that are positive or equivocal by a FDA-licensed Lyme disease antibody screening test (e.g., EIA). Test Performed by: [place] [address] Negative Assembler: Luis Marie II, M.D., Ph.D. 20 [id number] SEE RESULT BELOW Name: LISA HANNA : [address]: Yenny STRATTON Acct: [id number] Unit: [id number] AGE: 25 Location: [facility] Re03/21/16 SEX: F Status: REG REF SPEC: [id number] KERMIT: 03/21/[address]: Yenny STRATTON REQ: [id number] RECD: 03/21/16 STATUS: COMP _ SOURCE: THROAT SPDESC: ORDERED: Throat Culture Procedure Result Reported Site Throat Culture Final 03/24/16- 144 ML Organism 1 NORMAL RAOUL Quantity 3+ * ML - [facility] ([facility]) . END OF REPORT * ML=Testing performed at [facility] DEPARTMENT OF PATHOLOGY, [address] [place] [address] Alex Terry M.D. Director [facility] # [id number] 22 Test Performed by: [address] [address] Negative Assembler: Luis Marie II, M.D., Ph.D. 23 No bands detected 24 Specific serologic response to B. burgdorferi infection is not detected, but cannot rule out early infection during which low or undetectable antibody levels to B. burgdorferi may be present. If clinically indicated, a new serum specimen should be submitted in 7-14 days. ADDITIONAL INFORMATION CDC criteria require >=5 bands for IgG or >=2 bands for IgM for the Immunoblot to be considered positive. Bands (e.g.,p41) may be detected in patients without Lyme disease, and patterns not meeting the CDC criteria should be interpreted with caution. Immunoblot should be ordered only on specimens that are positive or equivocal by a FDA-licensed Lyme disease antibody screening test (e.g., EIA). Test Performed by: [facility] - [address] [address] Negative Assembler: Luis Marie II, M.D., Ph.D. 25 REFERENCE VALUE <4.0 (Negative) Test Performed by: [address] [address] Negative Assembler: Luis Marie II, M.D., Ph.D. 26 Negative serology. Celiac disease unlikely. However, approximately 10% of patients with celiac disease are seronegative. Also, patients who are already adhering to a gluten-free diet may be seronegative. If celiac disease is highly clinically suspected, consider HLA-DQ typing. Test Performed by: [place] [address] Negative Assembler: Luis Marie II, M.D., Ph.D. 27 Normal Range 180 to 914 Indeterminate Range 145 to 180 Deficient Range <145 28 RESULT: 01:02,03 REFERENCE VALUE Not Applicable 29 RESULT: 03:01,05:02 DQ Serologic Equivalent: 7,5 REFERENCE VALUE Not Applicable 30 The absence of HLA celiac permissive genes would make the presence of celiac disease unlikely. ADDITIONAL INFORMATION Method: Molecular typing of HLA antigens performed using reverse SSOP and/or SSP methods, reported as serological equivalents and low to medium resolution molecular values. Performing Laboratory CLIA# [id number] Test Performed by: [place] [address] Negative Assembler: Luis Marie II, M.D., Ph.D. 31 Because ethnic data is not always readily available, this report includes an eGFR for both -Americans and non- Americans. The National Kidney Disease Education Program (NKDEP) does not endorse the use of the MDRD equation for patients that are not between the ages of 18 and 70, are , have extremes of body size, muscle mass, or nutritional status, or are non- or non-. According to the National Kidney Foundation, irrespective of diagnosis, the stage of the disease is based on the level of kidney function: Stage Description GFR(mL/min/1.73 m(2)) 1 Kidney damage with normal or decreased GFR 90 2 Kidney damage with mild decrease in GFR 60-89 3 Moderate decrease in GFR 30-59 4 Severe decrease in GFR 15-29 5 Kidney failure <15 (or dialysis) 32 SEE RESULT BELOW Name: LISA HANNA : [address]: Debbie STRATTON Acct: [id number] Unit: [id number] AGE: 24 Location: [facility] Re10/28/14 SEX: F Status: REG REF SPEC: [id number] KERMIT: 10/28/14-[address] [facility] [address]: Debbie STRATTON REQ: [id number] RECD: 10/28/14451 STATUS: SOUT _ ORDERED: IMAGE ANALYSIS FINAL DIAGNOSIS Negative for Intraepithelial lesion or Malignancy A. Ectocervical/Endocervical Specimen Adequacy: Satisfactory of evaluation Transformation zone component identified Patient Information: HPV: Thin Layer Pap Test w/reflex to high risk HPV RNA testing when ASCUS Actual Specimen Date: 10/28/14 Last Menstrual Date: 10/04/14 ?: N Post Menopausal?: N Hysterectomy?: N Signed (signature on file) CARL Timmons (ASCP) 10/29 1316 This Pap test was evaluated with the assistance of the Maxpanda SaaS SoftwarePrep Test Imaging System. Due to cytologic findings at the bumper operator microscope, comprehensive manual rescreening by a Qa Automation Engineer may be required. The Pap Smear is a screening test designed to aid in the detection of premalignant and malignant conditions of the uterine cervix. It is not a diagnostic procedure and should not be used as the sole means of detecting cervical cancer. Both false- positive and false- negative reports do occur. Depending on your risk status, a Pap smear should be obtained and evaluated every 1-3 years. END OF REPORT * ML=Testing performed at Main Lab DEPARTMENT OF PATHOLOGY, [facility] [place] [address] Alex Terry M.D. Director [facility] # [id number] RUN DATE: 05/04/14 [facility] LAB LIVE PAGE 1 RUN TIME: [address] [facility] [employer] [place], [place] [address] Specimen Inquiry Name: LISA HANNA : [address]: Blair Israel MD Acct: [id number] Unit: [id number] AGE: 23 Location: [facility] Re05/01/14 SEX: F Status: DEP ER SPEC: [id number] KERMIT: 05/01/14-[address] [facility] [address]: Divine Carbajal NP REQ: [id number] RECD: 05/02/14 STATUS: HERNAN BAZZI DR: [facility] Felipa ENRIQUEZ _ SOURCE: URINE SPDESC: ORDERED: Urine Culture Procedure Result Verified Site Urine Culture Final 05/04/14- 0844 ML Organism 1 ESCHERICHIA COLI [place] Count 50-75,000 (Many) CFU/ML Organism 2 NORMAL RAOUL [place] Count 50-75,000 (Many) CFU/ML 1. ESCHERICHIA COLI M.I.C. RX --------- ------ Ampicillin <=2 S Cefazolin <=4 S Cefepime <=1 S Ceftriaxone <=1 S Ciprofloxacin <=0.25 S Gentamicin <=1 S Levofloxacin <=0.12 S Meropenem <=0.25 S Nitrofurantoin <=16 S Tetracycline <=1 S Pipercillin/Tazobactam <=4 S Trimethoprim/Sulfamethoxazole <=20 S Amoxicillin/Clavulanic Acid <=2 S Aztreonam <=1 S Contact the Microbiology Department for any additional antibiotic reporting. END OF REPORT * ML=Testing performed at Main Lab DEPARTMENT OF PATHOLOGY, [facility] [employer] [place], [place] [address] Alex Terry M.D. Director [facility] # [id number] 34 Because ethnic data is not always readily available, this report includes an eGFR for both -Americans and non- Americans. The National Kidney Disease Education Program (NKDEP) does not endorse the use of the MDRD equation for patients that are not between the ages of 18 and 70, are , have extremes of body size, muscle mass, or nutritional status, or are non- or non-. According to the National Kidney Foundation, irrespective of diagnosis, the stage of the disease is based on the level of kidney function: Stage Description GFR(mL/min/1.73 m(2)) 1 Kidney damage with normal or decreased GFR 90 2 Kidney damage with mild decrease in GFR 60-89 3 Moderate decrease in GFR 30-59 4 Severe decrease in GFR 15-29 5 Kidney failure <15 (or dialysis) 35 Acute inflammation: >10.00 36 This test detects intact HCG only and is indicated for the early detection of . 37 RUN DATE: 06/11/13 [facility] LAB LIVE PAGE 1 RUN TIME: [address] [facility] [employer] [place], [place] [address] Specimen Inquiry Name: LISA HANNA : [address]: Agnieszka Mathew Acct: [id number] Unit: [id number] AGE: 22 Location: [facility] Re06/08/13 SEX: F Status: DEP ER SPEC: [id number] KERMIT: 06/08/13-[address] [facility] [address]: Agnieszka Monte DO REQ: [id number] RECD: 06/09/13-3 STATUS: HERNAN BAZZI DR: Felipa ENRIQUEZ _ SOURCE: THROAT SPDESC: ORDERED: Throat Beta Str Procedure Result Verified Site Throat Beta Strep Culture Final 06/11/13- 0736 ML Negative For Group A Beta Streptococcus END OF REPORT * ML=Testing performed at Main Lab DEPARTMENT OF PATHOLOGY, [address] [place] [address] Alex Terry M.D. Director [facility] Permit #[id number] 38 Reference Range and Interpretation: TnI (ng/ml) Interpretation Less Than 0.06 ng/mL Not supportive of diagnosis of [place] 0.06 - 0.50 ng/ml Indeterminate: suggest serial studies if clinically indicated. Greater than 0.5 ng/mL Consistent with diagnosis of [place] 39 Effective March 10, 2012, in conjunction with the upgrade of the hospital information system, [facility] will release the International Normalized Ratio (INR) only. Patient reports will no longer contain prothrombin time (PT) results in seconds. This allows for consistency in patient evaluation and treatment. The INR was adopted by the World Health Organization (WHO) in 1983 as a standardized system of reporting PT. The Centers for Disease Control (CDC) states that reporting of PT results in INR only is the preferred method. Recommended INR for Patients on Oral Anticoagulants Prophylaxis 2.0 - 3.0 Treatment of thrombosis 2.0 - 3.0 Prevention of embolism 2.0 - 3.0 Prevention of embolism from prosthetic heart valves 2.5 - 3.5 40 Effective April 09, 2012 new APTT reference and therapeutic values have been implemented. 41 A metabolite of Naproxen, O-desmethylnaproxen, has been shown to interfere with the Jendrassik-Maria E method for measuring total bilirubin. Samples from patients who have taken Naproxen have shown spurious elevation in total bilirubin levels. 42 Because ethnic data is not always readily available, this report includes an eGFR for both -Americans and non- Americans. The National Kidney Disease Education Program (NKDEP) does not endorse the use of the MDRD equation for patients that are not between the ages of 18 and 70, are , have extremes of body size, muscle mass, or nutritional status, or are non- or non-. According to the National Kidney Foundation, irrespective of diagnosis, the stage of the disease is based on the level of kidney function: Stage Description GFR(mL/min/1.73 m(2)) 1 Kidney damage with normal or decreased GFR 90 2 Kidney damage with mild decrease in GFR 60-89 3 Moderate decrease in GFR 30-59 4 Severe decrease in GFR 15-29 5 Kidney failure <15 (or dialysis) 43 Interpretation %CK-MB; < 5% Not supportive of diagnosis of [place] 5 - <10% Indeterminate; suggest serial studies 10% or > Consistent with diagnosis of [place] 44 Reference Range and Interpretation: TnI (ng/ml) Interpretation Less Than 0.06 ng/mL Not supportive of diagnosis of [place] 0.06 - 0.50 ng/ml Indeterminate: suggest serial studies if clinically indicated. Greater than 0.5 ng/mL Consistent with diagnosis of [place] 45 ---- RUN DATE: 01/18/12 [facility] NMI LIVE PAGE 1 RUN TIME: 1135 Specimen Inquiry RUN USER: INTERFACE -- [id number] Status: REG REF Re01/17/12 Age/Sex: 21/F Unit#: [id number] Location: [facility] : [birth year] -- Specimen: [id number] SOUT Spec Date:01/17/12 [facility] Dr: Felipa ENRIQUEZ Spec Type: CYTOLOGY Received:01/18/12 Copies to: SOURCE ECTOCERVICAL/ENDOCERVICAL Thin Prep with Reflex HPV Test PATIENT INFORMATION ACTUAL COLLECTION DATE: 01/17/12 ? No POST MENOPAUSAL? No HYSTERECTOMY? No LAST MENSTRUAL PERIOD: 01/09/12 ADEQUACY OF SPECIMEN Satisfactory for evaluation * Transformation zone component identified * DIAGNOSIS NEGATIVE FOR INTRAEPITHELIAL LESION OR MALIGNANCY * This Pap test was evaluated with the assistance of the Maxpanda SaaS SoftwarePrep Pap Test Imaging System. The Pap Smear is a screening test designed to aid in the detection of premalign ant and malignant conditions of the uterine cervix. It is not a diagnostic procedure a nd should not be used as the sole means of detecting cervical cancer. Both false- positiv e and false-negative reports do occur. Depending on your risk status, a Pap smear hawa uld be obtained and evaluated every one to three years. Final Interpretation electronically signed by: Priyanka AGLLEGOS(ASCP) 01/18/12 113 5 -- -- DEPARTMENT OF PATHOLOGY, [address] [place] [address] [facility] Permit #[id number] Alex Terry M.D. Director Radha Banerjee M.D. Correctional Therapy Teacher Dir yvonne -- 46 ICTOTEST IS A QUALITATIVE CONFIRMATORY TEST FOR BILIRUBIN. 47 Anion gap measurement may be of limited value in the presence of any alkalosis, especially in a combined acid base disorder. . 48 A metabolite of Naproxen, O-desmethylnaproxen, has been shown to interfere with the Jendrassik-Maria E method for measuring total bilirubin. Samples from patients who have taken Naproxen have shown spurious elevation in total bilirubin levels. 49 Because ethnic data is not always readily available, this report includes an eGFR for both -Americans and non- Americans. The National Kidney Disease Education Program (NKDEP) does not endorse the use of the MDRD equation for patients that are not between the ages of 18 and 70, are , have extremes of body size, muscle mass, or nutritional status, or are non- or non-. According to the National Kidney Foundation, irrespective of diagnosis, the stage of the disease is based on the level of kidney function: Stage Description GFR(mL/min/1.73 m(2)) 1 Kidney damage with normal or decreased GFR 90 2 Kidney damage with mild decrease in GFR 60-89 3 Moderate decrease in GFR 30-59 4 Severe decrease in GFR 15-29 5 Kidney failure <15 (or dialysis) 50 Imm. NE 1 51 Neutrophilia % Lymphopenia % 52 If is still suspected, please repeat test after 48 to 72 hours. . This test detects intact HCG only and is indicated for the early detection of . 53 Anion gap measurement may be of limited value in the presence of any alkalosis, especially in a combined acid base disorder. . 54 A metabolite of Naproxen, O-desmethylnaproxen, has been shown to interfere with the Jendrassik-Maria E method for measuring total bilirubin. Samples from patients who have taken Naproxen have shown spurious elevation in total bilirubin levels. 55 Because ethnic data is not always readily available, this report includes an eGFR for both -Americans and non- Americans. The National Kidney Disease Education Program (NKDEP) does not endorse the use of the MDRD equation for patients that are not between the ages of 18 and 70, are , have extremes of body size, muscle mass, or nutritional status, or are non- or non-. According to the National Kidney Foundation, irrespective of diagnosis, the stage of the disease is based on the level of kidney function: Stage Description GFR(mL/min/1.73 m(2)) 1 Kidney damage with normal or decreased GFR 90 2 Kidney damage with mild decrease in GFR 60-89 3 Moderate decrease in GFR 30-59 4 Severe decrease in GFR 15-29 5 Kidney failure <15 (or dialysis) 56 VERBAL TO YESENIA/SARITHA BY JOMAR at 1936 on 09/08/11. Results read back accurately. RUN ON DILUTION 57 ---- RUN DATE: 01/22/11 [facility] NMI LIVE PAGE 1 RUN TIME: 1541 Specimen Inquiry RUN USER: INTERFACE -- [id number] Status: REG REF Re01/19/11 Age/Sex: 20/F Unit#: [id number] Location: [facility] : [birth year] -- Specimen: [id number] Spec Date: 01/19/[address]: Felipa ENRIQUEZ Spec Type: CYTOLOGY Received: 01/19/11-1516 Copies to: SOURCE ECTOCERVICAL/ENDOCERVICAL Thin Prep with Reflex HPV Test PATIENT INFORMATION ACTUAL COLLECTION DATE: 01/19/11 ? No POST MENOPAUSAL? No HYSTERECTOMY? No PATIENT HISTORY: Last menstrual period Unknown ADEQUACY OF SPECIMEN Satisfactory for evaluation * Transformation zone component identified * DIAGNOSIS NEGATIVE FOR INTRAEPITHELIAL LESION OR MALIGNANCY * Reactive cellular changes associated with * Inflammation (includes typical repair) * This Pap test was evaluated with the assistance of the ThinPrep Pap Test Imaging System. Due to cytologic findings at the bumper operator microscope, comprehensive manual rescreening by a Qa Automation Engineer was required. The Pap Smear is a screening test designed to aid in the detection of premalign ant and malignant conditions of the uterine cervix. It is not a diagnostic procedure a nd should not be used as the sole means of detecting cervical cancer. Both false- positiv e and false-negative reports do occur. Depending on your risk status, a Pap smear hawa uld be obtained and evaluated every one to three years. Initial evaluation performed by Priyanka GALLEGOS([facility]) 01/22/11 -- DEPARTMENT OF PATHOLOGY, [address] [place] [address] [facility] Permit #[id number] Sanna Bensno M.D. Correctional Therapy Teacher Dir yvonne -- -- RUN DATE: 01/22/11 [facility] NMI LIVE PAGE 2 RUN TIME: 4574 Specimen Inquiry RUN USER: INTERFACE -- Name: LISA HANNA Status: REG REF Re01/19/11 Age/Sex: 20/F Unit#: [id number] Location: [facility]. : [birth year] -- -- CONTINUED -- Final Interpretation electronically signed by: ALEX TERRY MD 01/22/11 15 41 -- -- DEPARTMENT OF PATHOLOGY, [address] [place] [address] [facility] Permit #[id number] Alex Terry M.D. Director Radha Banerjee M.D. Correctional Therapy Teacher Dir yvonne -- 58 Stool tests on a separate lab order. SL 59 Lymphopenia % 60 COMMENTS: N 61 Lymphopenia % 62 Anion gap measurement may be of limited value in the presence of any alkalosis, especially in a combined acid base disorder. . 63 A metabolite of Naproxen, O-desmethylnaproxen, has been shown to interfere with the Jendrassik-Maria E method for measuring total bilirubin. Samples from patients who have taken Naproxen have shown spurious elevation in total bilirubin levels. 64 Because ethnic data is not always readily available, this report includes an eGFR for both -Americans and non- Americans. The National Kidney Disease Education Program (NKDEP) does not endorse the use of the MDRD equation for patients that are not between the ages of 18 and 70, are , have extremes of body size, muscle mass, or nutritional status, or are non- or non-. According to the National Kidney Foundation, irrespective of diagnosis, the stage of the disease is based on the level of kidney function: Stage Description GFR(mL/min/1.73 m(2)) 1 Kidney damage with normal or decreased GFR 90 2 Kidney damage with mild decrease in GFR 60-89 3 Moderate decrease in GFR 30-59 4 Severe decrease in GFR 15-29 5 Kidney failure <15 (or dialysis) 65 PLEASE NOTE NEW REFERENCE RANGE. 66 ICTOTEST IS A QUALITATIVE CONFIRMATORY TEST FOR BILIRUBIN. 67 Anion gap measurement may be of limited value in the presence of any alkalosis, especially in a combined acid base disorder. . 68 A metabolite of Naproxen, O-desmethylnaproxen, has been shown to interfere with the Jendrassik-[place] method for measuring total bilirubin. Samples from patients who have taken Naproxen have shown spurious elevation in total bilirubin levels. 69 Because ethnic data is not always readily available, this report includes an eGFR for both -Americans and non- Americans. The National Kidney Disease Education Program (NKDEP) does not endorse the use of the MDRD equation for patients that are not between the ages of 18 and 70, are , have extremes of body size, muscle mass, or nutritional status, or are non- or non-. According to the National Kidney Foundation, irrespective of diagnosis, the stage of the disease is based on the level of kidney function: Stage Description GFR(mL/min/1.73 m(2)) 1 Kidney damage with normal or decreased GFR 90 2 Kidney damage with mild decrease in GFR 60-89 3 Moderate decrease in GFR 30-59 4 Severe decrease in GFR 15-29 5 Kidney failure <15 (or dialysis) 70 PLEASE NOTE NEW REFERENCE RANGE. 71 Lymphopenia % 72 Anion gap measurement may be of limited value in the presence of any alkalosis, especially in a combined acid base disorder. . 73 A metabolite of Naproxen, O-desmethylnaproxen, has been shown to interfere with the Jendrassik-Maria E method for measuring total bilirubin. Samples from patients who have taken Naproxen have shown spurious elevation in total bilirubin levels. 74 Because ethnic data is not always readily available, this report includes an eGFR for both -Americans and non- Americans. The National Kidney Disease Education Program (NKDEP) does not endorse the use of the MDRD equation for patients that are not between the ages of 18 and 70, are , have extremes of body size, muscle mass, or nutritional status, or are non- or non-. According to the National Kidney Foundation, irrespective of diagnosis, the stage of the disease is based on the level of kidney function: Stage Description GFR(mL/min/1.73 m(2)) 1 Kidney damage with normal or decreased GFR 90 2 Kidney damage with mild decrease in GFR 60-89 3 Moderate decrease in GFR 30-59 4 Severe decrease in GFR 15-29 5 Kidney failure <15 (or dialysis) 75 Serologic response to B. burgdorferi infection is not detected, but cannot rule out early infection during which low or undetectable antibody levels to B. burgdorferi may be present. If clinically indicated, a new serum specimen should be submitted in 7-14 days. Test Performed by: [facility] Dpt of Lab Med and Pathology [address] [place] [address] Negative Assembler: Buzz Brown III, M.D. 76 Results suggest no prior exposure to Ashley-Carreon Virus. However, a second serum specimen should be tested in 10-14 days if clinically indicated. In most populations, at least 90% of the adult population will have been infected with EBV sometime in the past and therefore, will be positive for anti-VCA/IgG and anti-EBNA. Antibodies to EBNA develop 6-8 weeks after primary infection and remain present for life. Presence of VCA/IgM antibodies indicates recent primary infection with EBV. Test Performed by: [facility] Pathology [address] [place] [address] Negative Assembler: Buzz Brown III, M.D. 77 Results suggest no prior exposure to Ashley-Carreon Virus. However, a second serum specimen should be tested in 10-14 days if clinically indicated. In most populations, at least 90% of the adult population will have been infected with EBV sometime in the past and therefore, will be positive for anti-VCA/IgG and anti-EBNA. Antibodies to EBNA develop 6-8 weeks after primary infection and remain present for life. Presence of VCA/IgM antibodies indicates recent primary infection with EBV. Test Performed by: [facility] Med [facility] Pathology [address] [place] [address] Negative Assembler: Buzz Brown III, M.D. 78 Lymphopenia % Procedures Date CPT Code Description Status Comment 07/31/2017 01829 Omt 7-8 Body Regions Completed 06/25/2017 66225 Electrocardiogram Complete Completed 04/11/2017 72262 Omt 7-8 Body Regions Completed 02/28/2017 16139 Omt 7-8 Body Regions Completed 02/12/2017 55005 Omt 7-8 Body Regions Completed 01/10/2017 28579 Omt 7-8 Body Regions Completed 11/29/2016 68485 Omt 7-8 Body Regions Completed 10/11/2016 91094 Omt 7-8 Body Regions Completed 08/09/2016 60077 Omt 7-8 Body Regions Completed 07/05/2016 57672 Omt 3 To 4 Body Regions Involved Completed 05/24/2016 57819 Omt 7-8 Body Regions Completed 04/12/2016 09126 Omt 7-8 Body Regions Completed 03/01/2016 26087 Omt 7-8 Body Regions Completed 01/19/2016 84757 Omt 7-8 Body Regions Completed 12/01/2015 83967 Omt 7-8 Body Regions Completed 10/17/2015 22446 Omt 7-8 Body Regions Completed 08/11/2015 84642 Omt 7-8 Body Regions Completed 07/14/2015 50427 Omt 7-8 Body Regions Completed 06/14/2015 91957 Omt 7-8 Body Regions Completed 05/19/2015 34554 Omt 7-8 Body Regions Completed 12/22/2014 50198 Tympanometry Completed 12/22/2014 52732 Audiometry Screen, Pure Tone, Completed Air 09/08/2012 Colonoscopy Completed 2012:normal, follow up at age 50 unless symptoms warrant sooner 05/22/2012 43116 Bronchospasm Evaluation Pre Completed & Post 05/22/2012 99295 Bronchospasm Evaluation Pre Completed & Post 05/22/2012 62808 Bronchospasm Evaluation Pre Completed & Post 01/17/2012 73922 Audiometry Screen, Pure Tone, Completed Air 03/29/2011 20211 X-Ray, Thoracic Spine 3 Views Completed 01/19/2011 79659 Xray Abdomen Upright/Flat Abd Completed Encounters Type Date Location Provider CPT E/M Dx Office Visit 07/31/2017 12:55p Main Office Sony Bolton D.O. 84605 R53.83 R42 M79.1 M54.5 M99.05 M99.04 M99.03 M99.08 M99.01 M99.00 M99.02 Office Visit 06/25/2017 11:15a Main Office Sony Bolton D.O. 77608 R53.83 R68.84 R00.2 R79.82 Office Visit 06/18/2017 10:15a Main Office Sony Bolton D.O. 00377 J32.0 R53.83 R42 M79.1 Office Visit 04/11/2017 2:30p Main Office Sony Bolton D.O. 49554 R68.84 M54.5 M99.05 M99.04 M99.03 M99.08 M99.01 M99.00 M99.02 J31.0 Office Visit 02/28/2017 12:55p Main Office Sony Bolton D.O. 86204 R68.84 M54.5 J01.01 M99.04 M99.05 M99.03 M99.08 M99.01 M99.00 M99.02 Office Visit 02/12/2017 10:15a Main Office Sony Bolton D.O. 52256 R68.84 M99.02 M99.00 M99.01 M99.08 M99.03 M99.05 M99.04 Office Visit 01/10/2017 4:45p Main Office Sony Bolton D.O. 83545 R05 R68.84 M99.02 M99.00 M99.01 M99.08 M99.03 M99.05 M99.04 J01.00 Office Visit 11/29/2016 10:30a Main Office Sony Bolton D.O. 09239 M99.02 M99.00 M99.01 M99.08 M99.03 M99.05 M99.04 R68.84 R47.02 J31.0 J03.90 Office Visit 10/11/2016 2:00p Main Office Sony Bolton D.O. 64802 M99.02 M99.00 M99.01 M99.08 M99.03 M99.05 M99.04 R47.02 J31.0 Office Visit 08/09/2016 2:00p Main Office Sony Bolton D.O. 46635 M99.02 M99.00 M99.01 M99.08 R68.84 M99.05 M99.03 M99.04 Office Visit 07/30/2016 4:45p Main Office Sony Bolton D.O. 56605 M25.521 Z11.6 Z13.89 Office Visit 07/05/2016 2:30p Main Office Sony Bolton D.O. 48629 R05 J11.1 M99.02 M99.00 M99.01 M99.08 Office Visit 05/24/2016 12:55p Main Office Snoy Bolton D.O. 35482 R68.84 M99.00 M99.02 M99.05 M99.03 M99.08 M99.04 M99.01 Office Visit 04/12/2016 12:55p Main Office Sony Bolton D.O. 16595 R68.84 M99.01 K21.9 M99.00 M99.02 M99.05 M99.03 M99.08 M99.04 Office Visit 03/21/2016 2:40p [place] [address] J02.8 Office Visit 03/01/2016 2:30p Main Office Sony Bolton D.O. 25598 R68.84 M54.5 K21.9 M99.01 M99.00 M99.02 M99.05 M99.03 M99.08 M99.04 Office Visit 01/19/2016 9:45a Main Office Sony Bolton D.O. 58986 M99.01 M99.00 M99.02 M99.05 M99.03 M99.08 M99.04 M54.12 R68.84 M54.5 Office Visit 12/01/2015 11:30a Main Office Sony Bolton D.O. 14777 M99.08 M99.01 M99.02 M99.03 M99.04 M99.05 M99.00 J31.0 M54.5 M54.12 R68.84 Office Visit 10/17/2015 11:30a Main Office Sony Bolton D.O. 74800 R68.84 M79.672 M99.01 M99.08 M99.02 M99.03 M99.04 M99.05 M99.00 Office Visit 08/11/2015 12:55p Main Office Sony Bolton D.O. 50201 R68.84 M99.00 M99.01 M99.08 M99.02 M99.03 M99.04 M99.05 Office Visit 07/14/2015 12:55p Main Office Sony Bolton D.O. 41438 E66.01 Z68.44 R05 R13.13 J31.0 K21.9 R68.84 M99.00 M99.01 M99.08 M99.02 M99.03 M99.04 M99.05 Office Visit 06/20/2015 1:15p Main Office Sony Botlon D.O. 75433 R05 R13.13 J31.0 K21.9 J45.21 F41.9 Office Visit 06/14/2015 8:55a Main Office Sony Bolton D.O. 40854 R68.84 M26.60 M99.04 M99.05 M99.03 M99.01 M99.02 M99.00 M99.08 K58.9 M54.2 R42 Office Visit 05/19/2015 9:30a Main Office Sony Bolton D.O. 82804 R68.84 M26.60 M99.04 M99.05 M99.03 M99.01 M99.02 M99.00 M99.08 M79.1 M54.2 Office Visit 04/20/2015 12:55p Main Office Sony Bolton D.O. 99549 R68.84 M26.60 M99.01 M99.02 M99.00 W57.xxxA R53.83 K58.9 R10.32 R11.0 Office Visit 01/27/2015 2:00p Main Office Debbie Batres RPA-C 18019 894.0 E906.8 Office Visit 12/22/2014 10:40a Main Office Debbie Batres RPA-C 24181 388.70 784.92 781.3 278.01 Office Visit 10/28/2014 9:40a Main Office Debbie Batres RPA-C 33270 V70.0 V76.19 278.00 530.81 V72.31 785.1 V85.44 536.8 Office Visit 01/19/2013 9:00a Main Office Deniz Mendez 28484 V70.0 278.00 V05.8 V07.2 V72.31 Office Visit 06/20/2012 10:30a Main Office Mandy Carlisle 74989 530.81 278.01 V65.3 Office Visit 05/22/2012 11:00a Main Office Felipa Cheng P.A. 75481 493.91 285.9 278.00 Office Visit 04/24/2012 11:00a Main Office Felipa Cheng P.A. 23798 530.81 785.1 278.00 285.9 V04.81 V07.2 Office Visit 01/17/2012 9:00a Main Office Felipa Cheng P.A. 85187 V41.2 V70.0 V72.31 V76.19 V76.2 V05.8 V06.1 V07.2 Office Visit 11/15/2011 3:00p Main Office Felipa Cheng P.A. 13893 V25.01 Office Visit 10/18/2011 10:00a Main Office Felipa Cheng P.A. 75228 462 785.6 478.19 Office Visit 05/31/2011 10:20a Main Office Felipa Cheng P.A. 22287 724.5 Office Visit 04/26/2011 3:15p Main Office Luis Larsen M.D. 72241 525.8 564.1 278.01 V72.83 Office Visit 03/29/2011 9:40a Main Office Felipa Cheng P.A. 39914 724.1 564.1 278.01 Office Visit 01/19/2011 9:00a Main Office Felipa Cheng P.A. 02773 530.81 789.07 564.00 V76.2 789.04 Office Visit 01/09/2011 11:20a Main Office Felipa Cheng P.A. 95529 530.81 789.07 564.00 Office Visit 01/06/2011 9:00a Main Office Felipa Cheng P.A. 19945 530.81 789.09 Office Visit 12/28/2010 11:40a Main Office Felipa Cheng P.A. 16478 780.79 278.01 300.02 724.5 Office Visit 11/17/2010 11:20a Main Office Felipa Cheng P.A. 65308 300.02 564.1 524.60 278.01 Office Visit 11/10/2010 11:00a Main Office Felipa Cheng P.A. 92762 564.1 300.02 Office Visit 01/06/2010 11:00a Main Office Felipa Kingle, P.A. 36732 381.01 477.0 Office Visit 12/29/2009 10:20a Main Office Felipa Cheng, P.A. 22661 462 723.9 530.81 473.8 Office Visit 08/29/2009 9:40a Main Office Felipa Kingle, P.A. 64173 530.81 300.02 723.9 381.01 Office Visit 08/08/2009 8:40a Main Office Felipa Kingle, P.A. 39673 300.02 784.0 564.1 382.9 Office Visit 07/04/2009 9:40a Main Office Felipa Cheng, P.A. 46431 300.02 784.0 V48.8 368.12 Office Visit 06/17/2009 10:40a Main Office Felipa Kingle, P.A. 83102 300.02 461.0 564.1 493.91 Plan of Care 07/31/2017 - Sony Bolton D.O.R53.83 Other fatigueNew Medication:Doxycycline Hyclate 100 mgComments:Discussed the possibility of lyme due to poor sensitivity of western blot lyme test. Her temporary response with steroids followed by progressing of fatigue would fit a pattern of infectious cause, however it is not specific. Reviewed history extensively in notes showing improvement in neck pain after doxycycline course last year.R42 Dizziness and ywvxlacbzC69.1 MyalgiaFollow up:1 month recheck OMM jaw painM54.5 Low back painM99.05 Segmental and somatic dysfunction of pelvic nqtlcgN60.04 Segmental and somatic dysfunction of sacral bkpmqjW24.03 Segmental and somatic dysfunction of lumbar lgrgmqV40.08 Segmental and somatic dysfunction of rib cageM99.01 Segmental and somatic dysfunction of cervical saioytQ34.00 Segmental and somatic dysfunction of head jfbmxqM92.02 Segmental and somatic dysfunction of thoracic region
--- NOTE | 2017-08-23 22:22 | UC ---
Respiratory Complaint HPI - HPI Summary HPI Summary: 27 yo patient who c/o several days of post nasal drip, maxillary tenderness, difficulty breathing with mild 'tingling' in mid scapular area and fatigue. Denies fever or cough. States she was recently prescribed azelastatine and flonase for rhinitis. She has secondary amenorrhea for past 3 years and currently on [employer] work up, denies sexual activity and states there is no possibility of - History of Current Complaint Chief Complaint: UCRespiratory Stated Complaint: DIFFICULTY BREATHING,BACK PAIN Time Seen by Provider: 08/23/17 21:47 Hx Last Menstrual Period: 2014 Pain Intensity: 4 Associated Signs And Symptoms: Positive: Nasal Congestion, Sinus Discomfort Related History: Seasonal Allergies - Risk Factors Pulmonary Embolism Risk Factors: Negative Cardiac Risk Factors: Negative Pseudomonas Risk Factors: Negative Tuberculosis Risk Factors: Negative - Allergies/Home Medications Allergies/Adverse Reactions: Allergies Allergy/AdvReac Type Severity Reaction Status Date / Time Iodinated Contrast- Oral and Allergy Severe Palpitation Verified 08/23/17 21:04 IV Dye s Penicillins Allergy Severe Difficulty Verified 08/23/17 21:04 Breathing amoxicillin Allergy Difficulty Verified 08/23/17 21:04 Breathing Home Medications: Home Medications ALPRAZolam TAB* [Xanax TAB*] 0.5 - 1 mg PO TID PRN 08/23/17 [History Confirmed 08/23/17] Azelastine 0.15% NASAL(NF) [Astepro 0.15% NASAL (NF)] 1 spray NASAL BID [History Confirmed 08/23/17] Cyanocobalamin TAB* [Vitamin B12 TAB*] 1,000 mcg SL DAILY 08/23/17 [History Confirmed 08/23/17] Cyclobenzaprine TAB* [Flexeril 10 MG TAB*] 5 mg PO QPM PRN 08/23/17 [History Confirmed 08/23/17] Ibuprofen TAB* [Advil TAB*] 600 mg PO ONCE PRN 08/23/17 [History Confirmed 08/23] Magnesium Oxide TAB* [MagOx 400 TAB*] 1 - 2 tab PO BEDTIME 08/23/17 [History Confirmed 08/23/17] PMH/Surg Hx/FS Hx/Imm Hx Previously Healthy: Yes Respiratory History: Asthma Psychological History: Anxiety Other History Of: Negative For: HIV, Hepatitis B, Anticoagulant Therapy - Surgical History Surgical History: Yes Surgery Procedure, Year, and Place: CHOLECYSTECTOMY - Family History Known Family History: Positive: Cardiac Disease Negative: Hypertension, Diabetes - Social History Alcohol Use: None Substance Use Type: None Smoking Status (MU): Former Smoker Type: Cigarettes Length of Time of Smoking/Using Tobacco: 5 years Have You Smoked in the Last Year: No When Did the Patient Quit Smoking/Using Tobacco: 5 years ago Review of Systems Constitutional: Negative ENT: Nasal Discharge, Sinus Congestion Respiratory: Shortness Of Breath All Other Systems Reviewed And Are Negative: Yes Physical Exam Triage Information Reviewed: Yes Appearance: Well-Appearing, Obese Vital Signs: Initial Vital Signs Temp 96.7 F 08/23/17 20:57 Pulse 70 08/23/17 20:57 Resp 16 08/23/17 20:57 BP 152/90 08/23/17 20:57 Pulse Ox 98 08/23/17 20:57 Vital Signs Reviewed: Yes Eyes: Positive: Conjunctiva Clear ENT: Positive: Pharynx normal, TMs normal, Sinus tenderness - maxillary b/l Neck: Positive: Supple, Nontender Respiratory: Positive: Chest non-tender, Lungs clear, Normal breath sounds, No respiratory distress Cardiovascular: Positive: RRR, No Murmur, Pulses Normal, Brisk Capillary Refill Abdomen Description: Positive: Nontender Bowel Sounds: Positive: Present Skin Exam: Normal UC Diagnostic Evaluation - Laboratory O2 Sat by Pulse Oximetry: 98 Respiratory Course/Dx - Differential Dx/Diagnosis Provider Diagnoses: maxillary sinusitis. allergic rhinitis. History of bronchial asthma Discharge - Discharge Plan Condition: Stable Disposition: HOME Prescriptions: Azithromycin TAB* [Zithromax TAB (Z-NAOMIE) 250 mg #6 tabs] 2 tab PO .TODAY, THEN 1 DAILY #1 naomie Fluticasone Propionate [Flovent Diskus] 100 mcg IH BID #1 diskus Patient Education Materials: Rhinosinusitis (DC) Referrals: Sony Bolton DO [Primary Care Provider] -
[2017-08-23 22:54] VITALS: BP 140/82
== END 2017-08-23 22:30 | disposition home or self-care (01) ==
LOC: UCEAST 20:52
DX: J32.0 Chronic maxillary sinusitis (principal); J45.909 Unspecified asthma, uncomplicated; Z32.02 Encounter for pregnancy test, result negative; F41.9 Anxiety disorder, unspecified; Z88.0 Allergy status to penicillin; Z91.041 Radiographic dye allergy status; Z87.891 Personal history of nicotine dependence
CPT/HCPCS: 36415; 84702; 86703; 99212; G0463

== ENCOUNTER 2017-10-25 19:07 | Emergency (ER) | payer BC ==
--- NOTE | 2017-10-25 21:33 | RAD ---
INDICATION: Calf pain COMPARISON: None TECHNIQUE: Transverse and longitudinal scans of the left lateral calf were performed utilizing grayscale and color Doppler imaging. FINDINGS: There are no cystic or solid masses. There are no fluid collections. The sonographic appearance is normal IMPRESSION: NEGATIVE EXAMINATION
--- NOTE | 2017-10-25 21:35 | ED ---
Lower Extremity - HPI Summary HPI Summary: 27-year-old female presents with left anterior tang pain for the past couple days. She states she is concerned that she has blood clot. She states there is a certain area on her left anterior tang where she has pain. no history of blood clots. No chest pain or shortness of breath. Does not smoke. It is not on control. No recent travels or surgeries. No rash. No fevers. She has no medical conditions. never had this before. no injury. - History of Current Complaint Chief Complaint: EDExtremityLower Stated Complaint: LT LEG PAIN Time Seen by Provider: 10/25/17 20:29 Hx Last Menstrual Period: 2014 Pain Intensity: 6 - Allergies/Home Medications Allergies/Adverse Reactions: Allergies Allergy/AdvReac Type Severity Reaction Status Date / Time Iodinated Contrast- Oral and Allergy Severe Palpitation Verified 10/25/17 19:18 IV Dye s Penicillins Allergy Severe Difficulty Verified 10/25/17 19:18 Breathing amoxicillin Allergy Difficulty Verified 10/25/17 19:18 Breathing PMH/Surg Hx/FS Hx/Imm Hx Endocrine/Hematology History: Reports: Hx Anemia Denies: Hx Anticoagulant Therapy, Hx Diabetes, Hx Thyroid Disease Cardiovascular History: Denies: Hx Hypertension, Hx Pacemaker/ICD Respiratory History: Reports: Hx Asthma Denies: Hx Chronic Obstructive Pulmonary Disease (COPD), Hx Lung Cancer, Hx Pneumonia, Hx Pulmonary Embolism GI History: Denies: Hx Gall Bladder Disease, Hx Gastrointestinal Bleed, Hx Ulcer, Hx Urosepsis History: Denies: Hx Kidney Stones, Hx Renal Disease Neurological History: Denies: Hx Dementia, Hx Migraine, Hx Seizures, Hx Transient Ischemic Attacks (TIA) Psychiatric History: Reports: Hx Anxiety Denies: Hx Depression, Hx Schizophrenia, Hx Bipolar Disorder, Hx Substance Abuse - Surgical History Surgery Procedure, Year, and Place: CHOLECYSTECTOMY - Immunization History Date of Tetanus Vaccine: up to date per pt Date of Influenza Vaccine: unknown Infectious Disease History: No Infectious Disease History: Denies: Hx Clostridium Difficile, Hx Hepatitis, Hx Human Immunodeficiency Virus (HIV), Hx of Known/Suspected MRSA, Hx Shingles, Hx Tuberculosis, Hx Known/ Suspected VRE, Hx Known/Suspected VRSA, History Other Infectious Disease, Traveled Outside the [place] in Last 30 Days - Family History Known Family History: Positive: Cardiac Disease Negative: Hypertension, Diabetes - Social History Alcohol Use: None Substance Use Type: Reports: None Hx Tobacco Use: Yes Smoking Status (MU): Former Smoker Type: Cigarettes Length of Time of Smoking/Using Tobacco: 5 years Have You Smoked in the Last Year: No Review of Systems Negative: Fever Negative: Chest Pain Negative: Shortness Of Breath Positive: Other - left leg All Other Systems Reviewed And Are Negative: Yes Physical Exam Triage Information Reviewed: Yes Vital Signs On Initial Exam: Initial Vitals Temp Pulse Resp BP Pulse Ox 98.0 F 78 18 149/95 99 10/25/17 19:14 10/25/17 19:14 10/25/17 19:14 10/25/17 19:14 10/25/17 19:14 Vital Signs Reviewed: Yes Appearance: Positive: Well-Appearing Skin: Positive: Warm, Dry Head/Face: Positive: Normal Head/Face Inspection Eyes: Positive: Normal, Conjunctiva Clear Respiratory/Lung Sounds: Positive: Clear to Auscultation, Breath Sounds Present Cardiovascular: Positive: Normal, RRR Musculoskeletal: Positive: Strength/ROM Intact - left leg, Other - tenderness over left anterior tang on lateral aspect. Negative: Tyra Sign Left, Edema Left Neurological: Positive: Normal Psychiatric: Positive: Normal Diagnostics - Vital Signs Vital Signs Temp Pulse Resp BP Pulse Ox 10/25/17 19:14 98.0 F 78 18 149/95 99 - Laboratory Lab Statement: Any lab studies that have been ordered have been reviewed, and results considered in the medical decision making process. - Ultrasound No standard instances Ultrasound Interpretation: No Acute Changes Ultrasound Interpretation Completed By: Radiologist Lower Extremity Course/Dx - Course Course Of Treatment: 27-year-old female presents with left anterior tang pain for the past couple days. She states she is concerned that she has blood clot. She states there is a certain area on her left anterior tang where she has pain. no history of blood clots. No chest pain or shortness of breath. Does not smoke. It is not on control. No recent travels or surgeries. No rash. No fevers. She has no medical conditions. never had this before. no injury. pain is in an area where a dvt can not occur. got u/s of the area and no fluid collection or superficial thombophlebitis. neurovascular intact. no sign of cellulitis. likely a sprain told to practice RICE. patient understand and agrees with plan. - Diagnoses Differential Diagnosis/HQI/PQRI: Positive: DVT, Phlebitis, Sprain Provider Diagnoses: Left leg pain Discharge - Sign-Out/Discharge Documenting (check all that apply): Discharge/Admit/Transfer - Discharge Plan Condition: Good Disposition: HOME Patient Education Materials: Leg Pain (ED) Referrals: Sony Bolton DO [Primary Care Provider] - Additional Instructions: Take Tylenol or ibuprofen every 6 hours as needed for pain Apply ice, rest, elevate Follow up with primary care physician within 5 days Return to ED if develop any new or worsening symptoms - Billing Disposition and Condition Condition: GOOD Disposition: HOME
[2017-10-25 21:45] VITALS: BP 137/84
== END 2017-10-25 21:44 | disposition home or self-care (01) ==
LOC: ED 19:07
DX: M79.662 Pain in left lower leg (principal); Z87.891 Personal history of nicotine dependence; D64.9 Anemia, unspecified; J45.909 Unspecified asthma, uncomplicated
CPT/HCPCS: 99282

== ENCOUNTER 2019-05-16 00:35 | Emergency (ER) | payer BC ==
[2019-05-16 05:43] LABS: Urine Appearance Cloudy; Urine Bilirubin Negative (Negative); Urine Blood Negative (Negative); Urine Color Yellow; Urine Glucose Negative (Negative); Urine Ketones Negative (Negative); Urine Nitrite Negative (Negative); Urine Protein Negative (Negative); Urine Urobilinogen Negative (Negative)
[2019-05-16 06:03] LABS: ABS Eosinophils 0.1 10^3/ul (0-0.6); ABS Lymphocytes 1.8 10^3/ul (1.0-4.8); ABS Monocytes 0.5 10^3/ul (0-0.8); ABS Neutrophils 4.4 10^3/ul (1.5-7.7); Eosinophil % 1.4 %; Hematocrit 38 % (35-47); Mean Corpuscular HGB Conc 34 g/dL (31-36); Mean Corpuscular Hemoglobin 29 pg (27-31); Mean Corpuscular Volume 85 fL (80-97); Mean Platelet Volume 8.1 fL (7.4-10.4); Nucleated Red Blood Cells % 0.2; Platelet Count 254 10^3/uL (150-450); Red Blood Count 4.46 10^6 /uL (3.70-4.87); Red Cell Distribution Width 14 % (10-15); White Blood Count 6.9 10^3/uL (3.5-10.8)
[2019-05-16 06:08] LABS: INR 1.06 (0.82-1.09)
[2019-05-16 06:24] LABS: ALT 15 U/L (7-52); AST 11 U/L (13-39); Albumin 3.8 g/dL (3.2-5.2); Albumin/Globulin Ratio 1.1 (1-3); Alkaline Phosphatase 81 U/L (34-104); Amylase 18 U/L (29-103); Anion Gap 6 mmol/L (2-11); BUN/Creatinine Ratio 17.4 (8-20); Blood Urea Nitrogen 12 mg/dL (6-24); C Reactive Protein 18.83 mg/L (<8.01); CO2 Carbon Dioxide 27 mmol/L (22-32); Calcium 8.9 mg/dL (8.6-10.3); Chloride 104 mmol/L (101-111); EGFR African American 120.9 (>60); EGFR Non-African American 99.9 (>60); Globulin 3.4 g/dL (2-4); Glucose 94 mg/dL (70-100); Potassium 3.6 mmol/L (3.5-5.0); Sodium 137 mmol/L (135-145); Total Protein 7.2 g/dL (6.4-8.9)
[2019-05-16 06:30] LABS: HCG Pregnancy < 0.60 mIU/mL
[2019-05-16] MEDS ORDERED: O ndansetron ODT 4MG 5TAB PRPK 4 MG PAK PO ONE (06:36)
--- NOTE | 2019-05-16 06:38 | ED ---
Abdominal Pain/Female - HPI Summary HPI Summary: This pt is a 28 Y/O F presenting to [facility] with a CC of LLQ abdominal pain that radiates into her back and is rated a 6/10 in severity. She states that she has been nauseous since the onset on 05/12/19. She denies any vomiting, diarrhea, fevers, chills, dysuria/hematuria/R sided abdominal pain, and headaches. She states that the pain is described as a squeezing. She states that she has had a decreased appetite due to the pain. She states no aggravating or alleviating factors. She states that she has a PMHx of pancreatitis a gall bladder removal. - History of Current Complaint Chief Complaint: EDAbdPain Stated Complaint: L SIDE ABD PAIN PER PT Time Seen by Provider: 05/16/19 05:12 Hx Obtained From: Patient Hx Last Menstrual Period: 2014 Onset/Duration: Sudden Onset, Lasting Days - 4, Still Present Timing: Constant Severity Initially: Moderate Severity Currently: Moderate Pain Intensity: 6 Pain Scale Used: 0-10 Numeric Location: Discrete At: LLQ Radiates: Yes Radiates to: Back Character: Other: - squeezing Aggravating Factor(s): Nothing Alleviating Factor(s): Nothing Associated Signs and Symptoms: Positive: Negative - chills, R sided abdominal pain, and headaches., Back Pain, Decreased Appetite, Nausea. Negative: Fever, Urinary Symptoms, Vomiting, Diarrhea Allergies/Adverse Reactions: Allergies Allergy/AdvReac Type Severity Reaction Status Date / Time Iodinated Contrast Media Allergy Severe Palpitation Verified 05/16/19 00:42 [Iodinated Contrast- Oral s and IV Dye] Penicillins Allergy Severe Difficulty Verified 05/16/19 00:42 Breathing amoxicillin Allergy Difficulty Verified 05/16/19 00:42 Breathing Home Medications: Home Medications Cholecalciferol (Vitamin D3) [Vitamin D3] 1,000 mg PO DAILY 05/16/19 [History Confirmed 05/16/19] Cyanocobalamin TAB* [Vitamin B12 TAB*] 500 mcg PO DAILY 05/16/19 [History Confirmed 05/16/19] PMH/Surg Hx/FS Hx/Imm Hx Previously Healthy: Yes Endocrine/Hematology History: Reports: Hx Anemia Denies: Hx Anticoagulant Therapy, Hx Diabetes, Hx Thyroid Disease Cardiovascular History: Denies: Hx Hypertension, Hx Pacemaker/ICD Respiratory History: Reports: Hx Asthma Denies: Hx Chronic Obstructive Pulmonary Disease (COPD), Hx Lung Cancer, Hx Pneumonia, Hx Pulmonary Embolism GI History: Denies: Hx Gall Bladder Disease, Hx Gastrointestinal Bleed, Hx Ulcer, Hx Urosepsis History: Denies: Hx Kidney Stones, Hx Renal Disease Neurological History: Denies: Hx Dementia, Hx Migraine, Hx Seizures, Hx Transient Ischemic Attacks (TIA) Psychiatric History: Reports: Hx Anxiety Denies: Hx Depression, Hx Schizophrenia, Hx Bipolar Disorder, Hx Substance Abuse - Cancer History Hx Chemotherapy: No Hx Radiation Therapy: No - Surgical History Surgical History: Yes Surgery Procedure, Year, and Place: CHOLECYSTECTOMY - Immunization History Date of Tetanus Vaccine: 2017 Date of Influenza Vaccine: 2017 Immunizations Up to Date: No Infectious Disease History: No Infectious Disease History: Denies: Hx Clostridium Difficile, Hx Hepatitis, Hx Human Immunodeficiency Virus (HIV), Hx of Known/Suspected MRSA, Hx Shingles, Hx Tuberculosis, Hx Known/ Suspected VRE, Hx Known/Suspected VRSA, History Other Infectious Disease, Traveled Outside the [place] in Last 30 Days - Family History Known Family History: Positive: Cardiac Disease Negative: Hypertension, Diabetes - Social History Occupation: Employed Full-time Lives: Alone Alcohol Use: None Hx Substance Use: No Substance Use Type: Reports: None Hx Tobacco Use: Yes Smoking Status (MU): Former Smoker Type: Cigarettes Length of Time of Smoking/Using Tobacco: 5 years Have You Smoked in the Last Year: No Review of Systems Negative: Fever, Chills Gastrointestinal: Negative - R sided abdominal pain Positive: Abdominal Pain - LLQ, Nausea. Negative: Vomiting, Diarrhea Genitourinary: Negative Musculoskeletal: Other - radiated back pain Negative: Headache Psychological: Other - POSITIVE: decreased appetite All Other Systems Reviewed And Are Negative: Yes Physical Exam - Summary Physical Exam Summary: General: Well-developed, obese female. No acute distress. HEENT: Normocephalic, Atraumatic. Eyes: Conjuctiva normal, PERRL. Ears: TMs within normal limits. Nares: (-) discharge, (-) erythema. Oropharynx: Clear, mucous membranes moist, (-) exudates. Neck: Soft, FROM, (-) lymphadenopathy, (-) thyromegaly, (-) JVD. Cardiovascular: Normal sinus rhythm, (-) murmur. Lungs: Clear to auscultation bilaterally (-) wheezes, (-) rales, (-) rhonchi. Abdomen: Soft, mild L upper Q epigastric tenderness, non-distended, (-) organomegaly, normal bowel sounds. Back: (-) CVA tenderness Extremities: No edema. Skin: Warm, dry, (-) rash. Neuro: Alert and oriented x3, no focal deficits. Psychiatric: Mood normal, affect normal. Triage Information Reviewed: Yes Vital Signs On Initial Exam: Initial Vitals Temp Pulse Resp BP Pulse Ox 97.3 F 76 16 144/94 98 05/16/19 00:36 05/16/19 00:36 05/16/19 00:36 05/16/19 00:36 05/16/19 00:36 Vital Signs Reviewed: Yes Procedures - Sedation Patient Received Moderate/Deep Sedation with Procedure: No Diagnostics - Vital Signs Vital Signs Temp Pulse Resp BP Pulse Ox 05/16/19 02:50 97.7 F 67 18 171/87 99 05/16/19 00:36 97.3 F 76 16 144/94 98 - Laboratory Lab Results: Lab Results 05/16/19 05/16/19 05/16/19 Range/Units 05:25 05:49 05:49 WBC 6.9 (3.5-10.8) 10^3/uL RBC 4.46 (3.70-4.87) 10^6 /uL Hgb 13.0 (12.0-16.0) g/dL Hct 38 (35-47) % MCV 85 (80-97) fL MCH 29 (27-31) pg MCHC 34 (31-36) g/dL RDW 14 (10-15) % Plt Count 254 (150-450) 10^3/uL MPV 8.1 (7.4-10.4) fL Neut % (Auto) 64.2 % Lymph % (Auto) 26.0 % Yates % (Auto) 7.9 % Eos % (Auto) 1.4 % Baso % (Auto) 0.5 % Absolute Neuts (auto) 4.4 (1.5-7.7) 10^3/ul Absolute Lymphs (auto) 1.8 (1.0-4.8) 10^3/ul Absolute Monos (auto) 0.5 (0-0.8) 10^3/ul Absolute Eos (auto) 0.1 (0-0.6) 10^3/ul Absolute Basos (auto) 0.0 (0-0.2) 10^3/ul Absolute Nucleated RBC 0.0 10^3/ul Nucleated RBC % 0.2 INR (Anticoag Therapy) 1.06 (0.82-1.09) Sodium (135-145) mmol/L Potassium (3.5-5.0) mmol/L Chloride (101-111) mmol/L Carbon Dioxide (22-32) mmol/L Anion Gap (2-11) mmol/L BUN (6-24) mg/dL Creatinine (0.51-0.95) mg/dL Est GFR ( Amer) (>60) Est GFR (Non-Af Amer) (>60) BUN/Creatinine Ratio (8-20) Glucose (70-100) mg/dL Lactic Acid (0.5-2.0) mmol/L Calcium (8.6-10.3) mg/dL Total Bilirubin (0.2-1.0) mg/dL AST (13-39) U/L ALT (7-52) U/L Alkaline Phosphatase (34-104) U/L C-Reactive Protein (<8.01) mg/L Total Protein (6.4-8.9) g/dL Albumin (3.2-5.2) g/dL Globulin (2-4) g/dL Albumin/Globulin Ratio (1-3) Amylase (29-103) U/L Lipase (11.0-82.0) U/L Beta HCG, Quant mIU/mL Urine Color Yellow Urine Appearance Cloudy Urine pH 5.0 (5-9) Ur Specific [place] 1.030 (1.010-1.030) Urine Protein Negative (Negative) Urine Ketones Negative (Negative) Urine Blood Negative (Negative) Urine Nitrate Negative (Negative) Urine Bilirubin Negative (Negative) Urine Urobilinogen Negative (Negative) Ur Leukocyte Esterase Negative (Negative) Urine Glucose Negative (Negative) 05/16/19 05/16/19 Range/Units 05:49 05:49 WBC (3.5-10.8) 10^3/uL RBC (3.70-4.87) 10^6 /uL Hgb (12.0-16.0) g/dL Hct (35-47) % MCV (80-97) fL MCH (27-31) pg MCHC (31-36) g/dL RDW (10-15) % Plt Count (150-450) 10^3/uL MPV (7.4-10.4) fL Neut % (Auto) % Lymph % (Auto) % Yates % (Auto) % Eos % (Auto) % Baso % (Auto) % Absolute Neuts (auto) (1.5-7.7) 10^3/ul Absolute Lymphs (auto) (1.0-4.8) 10^3/ul Absolute Monos (auto) (0-0.8) 10^3/ul Absolute Eos (auto) (0-0.6) 10^3/ul Absolute Basos (auto) (0-0.2) 10^3/ul Absolute Nucleated RBC 10^3/ul Nucleated RBC % INR (Anticoag Therapy) (0.82-1.09) Sodium 137 (135-145) mmol/L Potassium 3.6 (3.5-5.0) mmol/L Chloride 104 (101-111) mmol/L Carbon Dioxide 27 (22-32) mmol/L Anion Gap 6 (2-11) mmol/L BUN 12 (6-24) mg/dL Creatinine 0.69 (0.51-0.95) mg/dL Est GFR ( Amer) 120.9 (>60) Est GFR (Non-Af Amer) 99.9 (>60) BUN/Creatinine Ratio 17.4 (8-20) Glucose 94 (70-100) mg/dL Lactic Acid 0.6 (0.5-2.0) mmol/L Calcium 8.9 (8.6-10.3) mg/dL Total Bilirubin 0.60 (0.2-1.0) mg/dL AST 11 L (13-39) U/L ALT 15 (7-52) U/L Alkaline Phosphatase 81 (34-104) U/L C-Reactive Protein 18.83 H (<8.01) mg/L Total Protein 7.2 (6.4-8.9) g/dL Albumin 3.8 (3.2-5.2) g/dL Globulin 3.4 (2-4) g/dL Albumin/Globulin Ratio 1.1 (1-3) Amylase 18 L (29-103) U/L Lipase < 10 L (11.0-82.0) U/L Beta HCG, Quant < 0.60 mIU/mL Urine Color Urine Appearance Urine pH (5-9) Ur Specific [place] (1.010-1.030) Urine Protein (Negative) Urine Ketones (Negative) Urine Blood (Negative) Urine Nitrate (Negative) Urine Bilirubin (Negative) Urine Urobilinogen (Negative) Ur Leukocyte Esterase (Negative) Urine Glucose (Negative) Result Diagrams: 05/16/19 05:49 05/16/19 05:49 Lab Statement: Any lab studies that have been ordered have been reviewed, and results considered in the medical decision making process. Abdominal Pain Fem Course/Dx - Course Course Of Treatment: 28-year-old female presents with three-day history of left upper quadrant abdominal discomfort and nausea. Decreased appetite. Denies any fevers, vomiting, diarrhea. No urinary complaints. History of gallstones and pancreatitis. Gallbladder has been removed. Exam shows mild tenderness diffusely in the upper left abdomen. Workup demonstrates no significant abnormalities. Patient given Zofran. Discharged home. Follow-up with PCP. Follow-up sooner for any worsening symptoms. - Diagnoses Provider Diagnoses: Abdominal pain, Nausea Discharge ED - Sign-Out/Discharge Documenting (check all that apply): Patient Departure - discharge - Discharge Plan Condition: Stable Disposition: HOME Patient Education Materials: Acute Nausea and Vomiting (ED), Acute Abdominal Pain (ED) Referrals: Sony Bolton DO [Primary Care Provider] - 2 Days Additional Instructions: PLEASE RETURN TO THE EMERGENCY DEPARTMENT FOR ANY NEW OR WORSENING SYMPTOMS. FOLLOW UP WITH YOUR PRIMARY CARE PHYSICIAN IN 1-3 DAYS. - Billing Disposition and Condition Condition: STABLE Disposition: Home - Attestation Statements Document Initiated by Lyssa: Yes Documenting Scribe: Fausto Lara Provider For Whom Lyssa is Documenting (Include Credential): Jillian Isidro MD Scribe Attestation: Fausto Posey, scribed for Jillian Isidro MD on 05/16/19 at 1931. Scribe Documentation Reviewed: Yes Provider Attestation: The documentation as recorded by the Fausto pop accurately reflects the service I personally performed and the decisions made by me, Jillian Isidro MD Status of Scribe Document: Viewed
[2019-05-16 07:23] VITALS: BP 135/87
== END 2019-05-16 07:16 | disposition home or self-care (01) ==
LOC: ED 00:35
DX: R10.9 Unspecified abdominal pain (principal); R11.0 Nausea; D64.9 Anemia, unspecified; J45.909 Unspecified asthma, uncomplicated; F41.9 Anxiety disorder, unspecified; Z87.891 Personal history of nicotine dependence; Z90.49 Acquired absence of other specified parts of digestive tract; Z79.899 Other long term (current) drug therapy; Z88.0 Allergy status to penicillin; Z91.041 Radiographic dye allergy status
CPT/HCPCS: 36415; 80053; 81003; 82150; 83605; 83690; 84702; 85025; 85610; 86140; 99282; A9270-GY

== ENCOUNTER 2021-04-27 23:58 | Inpatient (IN) ==
[2021-04-28] MEDS ORDERED: Ketorolac *IM* INJ 60 MG/2 ML VIAL IM ONE (00:17)
[2021-04-28] MEDS ORDERED: Lidocaine PATCH 5% PATCH TRANSDERM ONE (00:17)
[2021-04-28] MEDS ORDERED: HYDROmorphone 0.5 MG/0.5 ML SYRINGE IV ONE (03:06)
[2021-04-28 03:54] LABS: ABS Lymphocytes 1.1 10^3/ul (1.0-4.8); ABS Monocytes 0.5 10^3/ul (0-0.8); ABS Neutrophils 12.3 10^3/ul (1.5-7.7); Hematocrit 41 % (35-47); Hemoglobin 14.1 g/dL (12.0-16.0); Mean Corpuscular HGB Conc 34 g/dL (31-36); Mean Corpuscular Hemoglobin 29 pg (27-31); Mean Corpuscular Volume 85 fL (80-97); Mean Platelet Volume 8.4 fL (7.4-10.4); Platelet Count 273 10^3/uL (150-450); Red Blood Count 4.86 10^6 /uL (3.70-4.87); Red Cell Distribution Width 14 % (10-15); White Blood Count 13.9 10^3/uL (3.5-10.8)
[2021-04-28] MEDS ORDERED: Lactated Ringers 1000 ml BAG 1,000 ML IV SCH (04:00)
[2021-04-28 04:10] LABS: C Reactive Protein 15.65 mg/L (<8.01)
[2021-04-28 04:17] LABS: HCG Pregnancy 1.18 mIU/mL
[2021-04-28 05:39] LABS: Potassium 4.1 mmol/L (3.5-5.0)
[2021-04-28] MEDS ORDERED: HYDROmorphone 1 MG/1 ML SYRINGE IV ONE ×2 (07:39→10:23)
[2021-04-28 08:06] LABS: Erythrocyte Sed Rate 33 mm/Hr (0-19)
[2021-04-28] MEDS ORDERED: HYDROmorphone 1 MG/1 ML SYRINGE IV SLOW PU ONE (12:21)
[2021-04-28 14:29] LABS: INR 1.12 (0.86-1.15)
[2021-04-28] MEDS ORDERED: Albuterol HFA INHALER 8 gm MDI INH PRN (15:34)
[2021-04-28 16:34] LABS: Rapid COVID-19 Molecular Undetected (Undetected)
[2021-04-28] MEDS: HYDROmorphone 1 MG/1 ML SYRINGE IV SLOW PU PRN (16:52)
[2021-04-28] MEDS: Acetaminophen IV 1 GM/100ML 100 ML IV SCH (16:55)
[2021-04-28 17:49] LABS: Urine Appearance Cloudy; Urine Bilirubin Negative (Negative); Urine Blood 1+ (Negative); Urine Color Yellow; Urine Glucose Negative (Negative); Urine Ketones Negative (Negative); Urine Nitrite Negative (Negative); Urine Protein Negative (Negative); Urine Urobilinogen Negative (Negative)
[2021-04-28 17:59] LABS: Urine Bacteria Absent (Absent); Urine Red Blood Cell 2+(6-10/hpf) (Absent); Urine Squamous Epithelial Cell Present (Absent); Urine White Blood Cell Trace(0-5/hpf) (Absent)
[2021-04-28] MEDS ORDERED: Albuterol HFA INHALER 8 gm MDI INH SCH (18:00)
[2021-04-28] MEDS: NS 0.9% 1000 ml BAG 1,000 ML IV SCH (22:30)
[2021-04-28] MEDS: Lidocaine Patch REMOVE PATCH PATCH OFF SCH (22:55)
[2021-04-29] MEDS: Albuterol HFA INHALER 8 gm MDI INH SCH ×3 (00:25→08:15)
[2021-04-29] MEDS: Acetaminophen IV 1 GM/100ML 100 ML IV SCH ×3 (02:05→21:16)
[2021-04-29 05:10] LABS: ABS Basophils 0.1 10^3/ul (0-0.2); ABS Eosinophils 0.1 10^3/ul (0-0.6); ABS Lymphocytes 1.9 10^3/ul (1.0-4.8); ABS Monocytes 0.8 10^3/ul (0-0.8); ABS Neutrophils 6.4 10^3/ul (1.5-7.7); Eosinophil % 1.3 %; Hematocrit 40 % (35-47); Hemoglobin 13.3 g/dL (12.0-16.0); Mean Corpuscular HGB Conc 33 g/dL (31-36); Mean Corpuscular Hemoglobin 29 pg (27-31); Mean Corpuscular Volume 87 fL (80-97); Mean Platelet Volume 8.3 fL (7.4-10.4); Platelet Count 237 10^3/uL (150-450); Red Blood Count 4.59 10^6 /uL (3.70-4.87); Red Cell Distribution Width 14 % (10-15); White Blood Count 9.3 10^3/uL (3.5-10.8)
[2021-04-29 05:22] LABS: INR 1.1 (0.86-1.15)
[2021-04-29] MEDS: HYDROmorphone 1 MG/1 ML SYRINGE IV SLOW PU PRN (05:25)
[2021-04-29 05:38] LABS: Calcium 8.6 mg/dL (8.6-10.3); Potassium 3.6 mmol/L (3.5-5.0)
[2021-04-29] MEDS ORDERED: Albuterol HFA INHALER 8 gm MDI INH PRN (08:19)
[2021-04-29] MEDS: Cholecalciferol (VIT D3) 1,000 unit TAB PO SCH (08:42)
[2021-04-29] MEDS: Dexamethasone IV 4 MG/ML VIAL 1 ml VIAL IV SLOW PU SCH ×2 (09:16→22:03)
[2021-04-29] MEDS ORDERED: Senna TAB 8.6 mg TAB PO PRN (09:58)
[2021-04-29] MEDS: NS 0.9% 1000 ml BAG 1,000 ML IV SCH ×2 (10:08→22:20)
[2021-04-29] MEDS ORDERED: Ondansetron 4 mg VIAL 2 MG/ML 2 ml VIAL IV PRN ×2 (10:17→17:19)
[2021-04-29] MEDS: Polyethylene Glycol 3350 17 GM PACKET PO SCH (10:27)
[2021-04-29] MEDS ORDERED: Lidocaine 1% w EPI 1:100,000 MDV 20 ML VIAL ONE (15:57)
[2021-04-29] MEDS ORDERED: Bupivacaine 0.25% SDV PF 10 ML VIAL INJ ONE (15:57)
[2021-04-29] MEDS ORDERED: Vancomycin 1,000 MG VIAL ONE (15:57)
[2021-04-29] MEDS ORDERED: Vancomycin 2000 MG X 1 dose, then per Pharmacy PROTOCOL IVPB ONE (16:00)
[2021-04-29] MEDS ORDERED: fentaNYL 250 mcg/5 ml 50 MCG/ML 5 ml VIAL (250 MCG) ONE ×2 (16:04→17:47)
[2021-04-29] MEDS ORDERED: Rocuronium 50 mg VIAL 10 mg/ml 5 ml VIAL (50 mg) ONE ×2 (16:04→17:56)
[2021-04-29] MEDS ORDERED: Midazolam 2 mg/2 ml VIAL 1 mg/ml 2 ml VIAL (2 mg) ONE (16:04)
[2021-04-29] MEDS ORDERED: Artificial Tear OPHTH.OINT 3.5 GM ONE (16:06)
[2021-04-29] MEDS ORDERED: Midazolam 5 mg/5 ml VIAL 1 mg/ml 5 ml VIAL (5 mg) ONE (16:56)
[2021-04-29] MEDS ORDERED: Naloxone 0.4 mg VIAL 0.4 mg/ml 1 ml VIAL IV PRN (17:19)
[2021-04-29] MEDS ORDERED: fentaNYL 100 mcg/2 ml 50 MCG/ML VIAL IV PRN (17:19)
[2021-04-29] MEDS ORDERED: HYDROmorphone 1 MG/1 ML SYRINGE IV PRN (17:19)
[2021-04-29] MEDS ORDERED: Ondansetron 4 mg VIAL 2 MG/ML 2 ml VIAL ONE (19:35)
[2021-04-29] MEDS ORDERED: Labetalol IV 5 MG/ML 20 ml VIAL ONE (20:55)
[2021-04-29] MEDS ORDERED: Acetaminophen IV 1 GM/100ML 100 ML IV ONE (21:12)
[2021-04-29] MEDS: Lidocaine Patch REMOVE PATCH PATCH OFF SCH (22:27)
[2021-04-30] MEDS: Acetaminophen IV 1 GM/100ML 100 ML IV SCH ×3 (00:08→15:39)
[2021-04-30 05:49] LABS: ABS Lymphocytes 0.8 10^3/ul (1.0-4.8); ABS Monocytes 0.9 10^3/ul (0-0.8); ABS Neutrophils 16.6 10^3/ul (1.5-7.7); Hematocrit 39 % (35-47); Lymphocyte % 4.3 %; Mean Corpuscular HGB Conc 33 g/dL (31-36); Mean Corpuscular Hemoglobin 29 pg (27-31); Mean Corpuscular Volume 86 fL (80-97); Mean Platelet Volume 8.3 fL (7.4-10.4); Platelet Count 268 10^3/uL (150-450); Red Blood Count 4.52 10^6 /uL (3.70-4.87); Red Cell Distribution Width 14 % (10-15); White Blood Count 18.2 10^3/uL (3.5-10.8)
[2021-04-30 06:04] LABS: Calcium 8.7 mg/dL (8.6-10.3)
[2021-04-30] MEDS: NS 0.9% 1000 ml BAG 1,000 ML IV SCH (06:23)
[2021-04-30] MEDS: Polyethylene Glycol 3350 17 GM PACKET PO SCH (08:01)
[2021-04-30] MEDS: Cholecalciferol (VIT D3) 1,000 unit TAB PO SCH (08:01)
[2021-04-30 12:46] LABS: Hematocrit 40 % (35-47); Hemoglobin 13.6 g/dL (12.0-16.0); Mean Corpuscular HGB Conc 34 g/dL (31-36); Mean Corpuscular Hemoglobin 30 pg (27-31); Mean Corpuscular Volume 87 fL (80-97); Platelet Count 295 10^3/uL (150-450); Red Blood Count 4.62 10^6 /uL (3.70-4.87); Red Cell Distribution Width 14 % (10-15); White Blood Count 20.2 10^3/uL (3.5-10.8)
[2021-04-30 13:17] LABS: Activated Partial Thrombo Time 27.6 seconds (26.0-38.0); INR 1.16 (0.86-1.15)
[2021-04-30 13:24] LABS: ABS Basophils 0.1 10^3/ul (0-0.2); ABS Lymphocytes 1.4 10^3/ul (1.0-4.8); ABS Monocytes 1.6 10^3/ul (0-0.8); ABS Neutrophils 17.1 10^3/ul (1.5-7.7); Eosinophil % 0.1 %
[2021-05-01] MEDS: Acetaminophen IV 1 GM/100ML 100 ML IV SCH ×3 (00:21→08:11)
[2021-05-01 06:43] LABS: ABS Eosinophils 0.1 10^3/ul (0-0.6); ABS Monocytes 0.8 10^3/ul (0-0.8); ABS Neutrophils 6.5 10^3/ul (1.5-7.7); Hematocrit 37 % (35-47); Hemoglobin 12.5 g/dL (12.0-16.0); Lymphocyte % 21.5 %; Mean Corpuscular HGB Conc 34 g/dL (31-36); Mean Corpuscular Hemoglobin 30 pg (27-31); Mean Corpuscular Volume 87 fL (80-97); Mean Platelet Volume 8.2 fL (7.4-10.4); Platelet Count 222 10^3/uL (150-450); Red Blood Count 4.25 10^6 /uL (3.70-4.87); Red Cell Distribution Width 14 % (10-15); White Blood Count 9.5 10^3/uL (3.5-10.8)
[2021-05-01] MEDS: Polyethylene Glycol 3350 17 GM PACKET PO SCH (08:07)
[2021-05-01] MEDS: Cholecalciferol (VIT D3) 1,000 unit TAB PO SCH (08:08)
[2021-05-01] MEDS: Heparin 5000 UNITS/ML 1 mL VIAL SUBCUT SCH ×2 (08:09→20:54)
[2021-05-02 06:01] LABS: ABS Eosinophils 0.2 10^3/ul (0-0.6); ABS Lymphocytes 1.7 10^3/ul (1.0-4.8); ABS Monocytes 1.1 10^3/ul (0-0.8); ABS Neutrophils 7.1 10^3/ul (1.5-7.7); Eosinophil % 1.6 %; Hematocrit 37 % (35-47); Hemoglobin 12.3 g/dL (12.0-16.0); Lymphocyte % 16.9 %; Mean Corpuscular HGB Conc 33 g/dL (31-36); Mean Corpuscular Hemoglobin 29 pg (27-31); Mean Corpuscular Volume 88 fL (80-97); Mean Platelet Volume 8.4 fL (7.4-10.4); Platelet Count 214 10^3/uL (150-450); Red Cell Distribution Width 14 % (10-15); White Blood Count 10.1 10^3/uL (3.5-10.8)
[2021-05-02 06:15] LABS: Calcium 8.5 mg/dL (8.6-10.3); Potassium 3.8 mmol/L (3.5-5.0)
[2021-05-02 07:22] VITALS: BP 119/73
[2021-05-02] MEDS: Cholecalciferol (VIT D3) 1,000 unit TAB PO SCH (08:30)
[2021-05-02] MEDS: Polyethylene Glycol 3350 17 GM PACKET PO SCH (08:30)
[2021-05-02] MEDS: Heparin 5000 UNITS/ML 1 mL VIAL SUBCUT SCH (08:31)
== END 2021-05-02 11:25 | disposition home health service (06) | DRG 310 ==
LOC: ED 23:58 → EDHOLD 04-28 15:52 → SUATTDRO 04-28 15:52 → SSU 04-28 20:38
PROVIDERS: ADMIT Internal Medicine; ATTEND Internal Medicine